=== PATIENT | female | born 1965 | race Caucasian/White ===

== ENCOUNTER 2018-03-12 21:21 | Emergency (ER) | payer BC, MEDICARE ==
[~2018-03-12] VITALS: Ht 162.6 cm; Wt 83.0 kg
[~2018-03-12 21:21] MED LIST: BENTYL10 MG PO; COLACE100 MG PO; GEODON40 MG PO; TYLENOL WITH C1 EACH PO; ZOLOFT100 MG PO
--- OUTSIDE RECORDS SUMMARY | 2018-03-12 21:24 | XMS REPORT | Clinical Summary ---
Author Author [facility] Organization [facility] Address Unknown Phone Unavailable Care Team Providers Care Resident Director Name Role Phone Sue Alba Maya BARNES PCP Allergies Comments Active Allergy Reactions Severity Noted Date Cephalexin Rash Low 10/04/2016 "interacts with other medication" Tramadol Rash Low 04/23/2017 Medications End Date Status Medication Sig Dispensed Refills Start Date Active ziprasidone (GEODON) 40 Take 40 mg by 0 MG capsule mouth every 7 evening. Active sertraline (ZOLOFT) 100 Take 100 mg 0 MG tablet by mouth 7 every morning. Active LORAZepam (ATIVAN) 1 MG 1 mg every 6 0 tablet (six) hours 7 as needed for anxiety. 03/28/2017 Discontinued dextromethorphan-guaifene Take 1 tablet 28 each 0 sin (MUCINEX DM) 30-600 by mouth 2 7 mg tablet extended (two) times a release 12 hr day. For cough 03/28/2017 Discontinued fluticasone (FLONASE) 50 USE 2 SPRAYS 16 mL 0 mcg/actuation nasal spray IN EACH 7 NOSTRIL DAILY 03/28/2017 Discontinued meloxicam (MOBIC) 15 mg TAKE 1 TABLET 30 tablet 0 tablet BY MOUTH 7 DAILY WITH FOOD NEEDED FOR PAIN FOR UP TO 30 DAYS 04/23/2017 Discontinued PROAIR HFA 90 Inhale 1 0 mcg/actuation inhaler puff. 8 07/27/2017 Discontinued dicyclomine (BENTYL) 20 TK 1 T PO QID 0 mg tablet prn 7 04/23/2017 Discontinued traMADol (ULTRAM) 50 mg TK 1 T PO BID 0 tablet PRN P 8 04/23/2017 Discontinued benzonatate (TESSALON) Take 1 20 capsule 0 200 MG capsule (200 8 capsuleIndications: Viral mg total) by URI mouth 3 (three) times a day as needed for cough. 04/23/2017 Discontinued fluticasone (FLONASE) 50 2 sprays (100 16 mL 3 mcg/actuation nasal mcg total) by 8 sprayIndications: Each Nare Allergic rhinitis, route daily. unspecified chronicity, unspecified seasonality, unspecified trigger 06/04/2017 Discontinued cetirizine (ZyrTEC) 10 MG Take 1 tablet 30 tablet 3 tabletIndications: (10 mg total) 8 Allergic rhinitis, by mouth unspecified chronicity, daily. unspecified seasonality, unspecified trigger 04/28/2017 azithromycin (ZITHROMAX Take 2 6 tablet 0 Z-YANNI) 250 MG tablet tablets the 8 first day, then 1 tablet daily for 4 days. 04/28/2017 benzonatate (TESSALON) Take 1 15 capsule 0 100 MG capsule capsule (100 8 mg total) by mouth every 8 (eight) hours for 5 days. 04/26/2017 ondansetron (ZOFRAN) 4 MG Take 1 tablet 10 tablet 0 tablet (4 mg total) 8 by mouth every 12 (twelve) hours as needed for nausea or vomiting for up to 3 days. 07/09/2017 Discontinued acetaminophen-codeine TK 1 T PO Q 0 (TYLENOL WITH CODEINE #3) 6 H PRN P 8 300-30 mg per tablet 06/04/2017 Discontinued cyclobenzaprine 0 (FLEXERIL) 10 mg tablet 8 06/04/2017 Discontinued methylPREDNISolone TK UTD 0 (MEDROL DOSEPAK) 4 mg 8 tablet 06/04/2017 Discontinued meloxicam (MOBIC) 15 mg Take 1 tablet 30 tablet 0 tabletIndications: (15 mg total) 8 Chronic left-sided low by mouth back pain with left-sided daily. sciatica 06/04/2017 Discontinued fluticasone (FLONASE) 50 2 sprays (100 15.8 mL 0 mcg/actuation nasal mcg total) by 8 sprayIndications: Acute Each Nare seasonal allergic route daily. rhinitis due to pollen 06/04/2017 Discontinued chlorpheniramine Take 1 tablet 40 tablet 0 (CHLOR-TRIMETON) 4 mg (4 mg total) 8 tabletIndications: Acute by mouth seasonal allergic every 6 (six) rhinitis due to pollen hours as needed for allergies or rhinitis for up to 30 days. 06/04/2017 Discontinued olopatadine (PATANOL) 0.1 Administer 1 5 mL 12 % ophthalmic drop to both 8 solutionIndications: eyes 2 (two) Acute seasonal allergic times a day. rhinitis due to pollen 06/01/2017 magnesium citrate Take 1 Bottle 296 mL 0 solution (296 mL 8 total) by mouth once for 1 dose. 06/14/2017 Discontinued ciprofloxacin (CIPRO) 500 Take 1 tablet 14 tablet 0 MG tablet (500 mg 8 total) by mouth 2 (two) times a day for 7 days. 06/14/2017 Discontinued metroNIDAZOLE (FLAGYL) Take 1 tablet 21 tablet 0 500 MG tablet (500 mg 8 total) by mouth 3 (three) times a day for 7 days. 06/19/2017 hydrocortisone acetate 1 Apply 1 30 g 1 % ointment application 8 topically 3 (three) times a day as needed (pain) for up to 10 days. 07/09/2017 Discontinued naproxen (NAPROSYN) 500 Take 1 tablet 20 tablet 0 201 MG tablet (500 mg 8 total) by mouth 2 (two) times a day with meals for 30 days. 01/10/2018 Discontinued fluticasone (FLONASE) 50 2 sprays (100 15.8 mL 0 mcg/actuation nasal mcg total) by 8 sprayIndications: Acute Each Nare allergic rhinitis, route daily. unspecified seasonality, unspecified trigger 06/21/2017 doxycycline (VIBRAMYCIN) Take 1 14 capsule 0 100 MG capsule (100 8 capsuleIndications: Acute mg total) by non-recurrent sinusitis, mouth 2 (two) unspecified location times a day for 7 days. 07/09/2017 Discontinued meloxicam (MOBIC) 15 mg TAKE 1 30 tablet 0 tabletIndications: TABLET(15 MG) 8 Chronic left-sided low BY MOUTH back pain with left-sided DAILY sciatica 07/05/2017 ciprofloxacin (CIPRO) 500 Take 1 tablet 20 tablet 0 MG tablet (500 mg 8 total) by mouth 2 (two) times a day for 10 days. 07/06/2017 Discontinued famotidine (PEPCID) 20 MG Take 1 tablet 20 tablet 0 tablet (20 mg total) 8 by mouth 2 (two) times a day for 10 days. 07/09/2017 Discontinued albuterol (PROAIR Inhale 1 puff 1 Inhaler 0 HFA,PROVENTIL every 6 (six) 8 HFA,VENTOLIN HFA) 90 hours as mcg/actuation inhaler needed for wheezing or shortness of breath for up to 30 days. 07/09/2017 Discontinued benzonatate (TESSALON) Take 1 21 capsule 0 100 MG capsule capsule (100 8 mg total) by mouth 3 (three) times a day as needed for cough for up to 21 doses. 07/09/2017 Discontinued famotidine (PEPCID) 20 MG Take 1 tablet 20 tablet 0 tablet (20 mg total) 8 by mouth 2 (two) times a day for 10 days. 07/10/2017 Discontinued azithromycin (ZITHROMAX Take 2 6 tablet 0 Z-YANNI) 250 MG tablet tablets the 8 first day, then 1 tablet daily for 4 days. 07/17/2017 ciprofloxacin (CIPRO) 500 Take 1 tablet 14 tablet 0 MG tablet (500 mg 8 total) by mouth 2 (two) times a day for 7 days. 07/17/2017 metroNIDAZOLE (FLAGYL) Take 1 tablet 21 tablet 0 500 MG tablet (500 mg 8 total) by mouth 3 (three) times a day for 7 days. 08/23/2017 butalbital-acetaminophen- Take 1 tablet 20 tablet 0 caff (ESGIC) 50-325-40 mg by mouth 8 per tablet every 4 (four) hours as needed for headaches for up to 30 days. 11/24/2017 Discontinued dicyclomine (BENTYL) 20 Take 1 tablet 10 tablet 0 mg tablet (20 mg total) 8 by mouth every 6 (six) hours as needed (bloating, GI cramping) for up to 10 doses. 11/23/2017 Discontinued ondansetron ODT (ZOFRAN Take 1 tablet 10 tablet 0 ODT) 4 MG disintegrating (4 mg total) 8 tablet by mouth every 8 (eight) hours as needed for nausea for up to 10 doses. 10/13/2017 Discontinued metroNIDAZOLE (FLAGYL) Take 250 mg 0 250 MG tablet by mouth 3 (three) times a day. 10/20/2017 sulfamethoxazole-trimetho Take 1 tablet 14 tablet 0 prim (BACTRIM DS) 800-160 by mouth 2 8 mg per tabletIndications: (two) times a Bronchitis day for 7 days. 10/23/2017 benzonatate (TESSALON) Take 1 30 capsule 0 200 MG capsule (200 8 capsuleIndications: Cough mg total) by mouth 3 (three) times a day as needed for cough for up to 10 days. 10/25/2017 naproxen (NAPROSYN) 500 Take 1 tablet 20 tablet 0 MG tablet (500 mg 8 total) by mouth 2 (two) times a day as needed (pain) for up to 10 days. 10/25/2017 docusate sodium (COLACE) Take 1 20 capsule 0 100 MG capsule capsule (100 8 mg total) by mouth every 12 (twelve) hours for 10 days. 10/17/2017 magnesium citrate Take 1 Bottle 592 mL 0 solution (296 mL 8 total) by mouth nightly for 2 doses. 10/17/2017 polyethylene glycol Take 4,000 mL 4000 mL 0 (GOLYTELY) 236-22.74-6.74 by mouth once 8 -5.86 gram solution for 1 dose. 11/23/2017 Discontinued polyethylene glycol Take 17 g by 30 packet 0 (MIRALAX) 17 gram packet mouth daily 8 for 30 days. 11/23/2017 Discontinued ondansetron ODT Take 1 tablet 15 tablet 1 (ZOFRAN-ODT) 4 MG (4 mg total) 8 disintegrating tablet by mouth every 8 (eight) hours as needed for nausea or vomiting for up to 5 days. 11/23/2017 Discontinued ciprofloxacin (CIPRO) 500 TK 1 T PO BID 0 MG tablet FOR 14 DAYS 8 11/24/2017 Discontinued cyclobenzaprine TK 1 T PO TID 0 (FLEXERIL) 10 mg tablet FOR 10 DAYS 8 11/23/2017 Discontinued methocarbamol (ROBAXIN) TK 2 TS PO 0 500 MG tablet QID PRF 8 MUSCLE SPASMS OR PAIN 11/23/2017 Discontinued metroNIDAZOLE (FLAGYL) TK 1 T PO BID 0 500 MG tablet FOR 14 DAYS 8 11/24/2017 Discontinued traMADol (ULTRAM) 50 mg TK 1 T PO BID 0 tablet PRN 8 11/23/2017 Discontinued dicyclomine (BENTYL) 10 Take 10 mg by 0 MG capsule mouth. 8 11/26/2017 Discontinued metroNIDAZOLE (FLAGYL) Take 1 tablet 15 tablet 0 500 MG tablet (500 mg 8 total) by mouth 3 (three) times a day for 5 days. 11/28/2017 ondansetron ODT Take 1 tablet 15 tablet 1 (ZOFRAN-ODT) 4 MG (4 mg total) 8 disintegrating tablet by mouth every 8 (eight) hours as needed for nausea or vomiting for up to 5 days. 12/23/2017 famotidine (PEPCID) 20 MG Take 1 tablet 60 tablet 0 tablet (20 mg total) 8 by mouth 2 (two) times a day for 30 days. 11/26/2017 Discontinued ciprofloxacin HCl (CIPRO) Take 1 tablet 10 tablet 0 500 MG tablet (500 mg 8 total) by mouth 2 (two) times a day for 5 days. 12/10/2017 vancomycin (VANCOCIN) 50 Take 5 mL 280 mL 0 mg/ml suspension oral (250 mg 8 suspension total) by mouth 4 (four) times a day for 14 days. 12/21/2017 acetaminophen-codeine Take 1-2 15 tablet 0 (TYLENOL WITH CODEINE #3) tablets by 8 300-30 mg per tablet mouth every 6 (six) hours as needed for moderate pain for up to 10 days. 02/03/2018 Discontinued dicyclomine (BENTYL) 10 Take 10 mg by 0 MG capsule mouth. 8 02/01/2018 metroNIDAZOLE (FLAGYL) Take 1 tablet 30 tablet 0 500 MG tablet (500 mg 8 total) by mouth 3 (three) times a day for 10 days. 01/25/2018 acetaminophen-codeine Take 1-2 10 tablet 0 (TYLENOL WITH CODEINE #3) tablets by 8 300-30 mg per tablet mouth every 6 (six) hours as needed for moderate pain for up to 3 days. 03/05/2018 meloxicam (MOBIC) 15 mg Take 1 tablet 20 tablet 0 tablet (15 mg total) 8 by mouth daily as needed for mild pain or moderate pain for up to 30 days. 02/15/2018 Discontinued dicyclomine (BENTYL) 20 Take 1 tablet 30 tablet 0 mg tablet (20 mg total) 8 by mouth every 8 (eight) hours as needed (abdominal cramping) for up to 30 days. 02/06/2018 acetaminophen-codeine Take 1 tablet 10 tablet 0 (TYLENOL WITH CODEINE #4) by mouth 8 300-60 mg per tablet every 8 (eight) hours as needed for moderate pain for up to 3 days. 03/05/2018 ondansetron ODT (ZOFRAN Take 1 tablet 10 tablet 0 ODT) 4 MG disintegrating (4 mg total) 8 tablet by mouth every 8 (eight) hours as needed for nausea or vomiting for up to 30 days. 02/25/2018 dicyclomine (BENTYL) 20 Take 2 20 tablet 0 mg tablet tablets (40 9 mg total) by mouth every 6 (six) hours as needed (Abdominal Pain) for up to 10 days. Active Problems Problem Noted Date Acute colitis 11/24/2017 Abdominal pain, lower 11/22/2017 Right lower quadrant abdominal pain 11/19/2017 Abdominal pain 11/17/2017 Generalized abdominal pain 07/08/2017 Diverticulosis of large intestine 06/04/2017 Encounters Care Team Description Date Type Specialty Leon Kain Floyd MD Acute bilateral lower abdominal pain (Primary Dx); Drug-seeking behavior; Narcotic abuse (HCC) 02/15/2018 Emergency Emergency Medicine Damaso Ferrara DO Abdominal pain, unspecified abdominal location (Primary Dx) 02/06/2018 Emergency Emergency Medicine Ron Stout MD Lower abdominal pain (Primary Dx); Diarrhea, unspecified type; Dehydration 02/03/2018 Emergency Emergency Medicine Gus Grimaldo MD Diarrhea, unspecified type (Primary Dx); Abdominal pain, unspecified abdominal location 01/22/2018 Emergency Emergency Medicine 01/22/2018 Wilfred Rubio MD 01/10/2018 Emergency Emergency Medicine Sultana Pyle MD Diarrhea, unspecified type (Primary Dx); Lower abdominal pain 12/10/2017 Emergency Emergency Medicine - 12/11/2017 Gus Grimaldo MD Abdominal pain, unspecified abdominal location (Primary Dx) 11/30/2017 Emergency Emergency Medicine Wilfred Cordoba MD Generalized abdominal pain (Primary Dx) 11/28/2017 Emergency Emergency Medicine Damaso Ferrara DO Ghosh, Sidharth, MD Pham, Hoang N, MD Acute colitis (Primary Dx) 11/24/2017 [facility] General Internal Medicine - Encounter 11/26/2017 Gus Grimaldo MD Pham, Hoang N, MD Abdominal pain, lower (Primary Dx); Colitis 11/22/2017 Emergency General Internal Medicine - 11/23/2017 Maxwell Lim MD 11/20/2017 [facility] General Internal Medicine Claus Traylor MD Islam, Nadim Bin, MD Pham, Hoang N, MD Right lower quadrant abdominal pain (Primary Dx); Enterocolitis 11/19/2017 Emergency General Surgery - 11/20/2017 Gus Grimaldo MD Ghosh, Sidharth, MD Abdominal pain, unspecified abdominal location (Primary Dx); Ileus (HCC) 11/17/2017 Emergency General Surgery 11/06/2017 Emergency Emergency Medicine Kain Cordova MD Back strain, initial encounter (Primary Dx); Acute back pain with sciatica, unspecified laterality 10/26/2017 Emergency Emergency Medicine Brandon Galan MD RLQ abdominal pain (Primary Dx) 10/17/2017 Emergency Emergency Medicine Brandon Galan MD RLQ abdominal pain (Primary Dx) 10/15/2017 Emergency Emergency Medicine Parth Rogers MD Bronchitis (Primary Dx); Cough; Upper respiratory tract infection, unspecified type 10/13/2017 Office Visit Internal Medicine Parth Rogers MD Chronic abdominal pain (Primary Dx) 10/02/2017 Telephone Family Medicine Gus Grimaldo MD Chest pain, unspecified type (Primary Dx) 10/01/2017 Emergency Emergency Medicine Huey Albright MD Abdominal pain, unspecified abdominal location (Primary Dx) 09/27/2017 Emergency Emergency Medicine - 09/28/2017 Damaso Ferrara DO Abdominal pain, unspecified abdominal location (Primary Dx) 09/09/2017 Emergency Emergency Medicine Violet Reese MD Lower abdominal pain (Primary Dx) 09/08/2017 Emergency Emergency Medicine Violet Reese MD 09/06/2017 Emergency Emergency Medicine Sultana Pyle MD Left lower quadrant pain (Primary Dx); Diarrhea, unspecified type 08/07/2017 Emergency Emergency Medicine Suraj Hidalgo NP-C Vander Meulen, Michael Scott, MD Left lower quadrant pain (Primary Dx); Periumbilical abdominal pain; Non-intractable vomiting with nausea, unspecified vomiting type; Diarrhea, unspecified type 07/27/2017 Emergency Emergency Medicine Suraj Hidalgo NP-C Rosendo Katz MD Lower abdominal pain (Primary Dx); Non-intractable vomiting with nausea, unspecified vomiting type; Diarrhea, unspecified type 07/26/2017 Emergency Emergency Medicine RichardNe Burns MA Diverticulosis of intestine without bleeding, unspecified intestinal tract location (Primary Dx) 07/26/2017 Orders Only Family Medicine Dejah Baker MD 07/26/2017 Telephone Family Medicine Kain Cordova MD Acute nonintractable headache, unspecified headache type (Primary Dx) 07/24/2017 Emergency Emergency Medicine Michele Rahman MD Ghosh, Sidharth, MD Generalized abdominal pain (Primary Dx) 07/08/2017 Emergency General Surgery - 07/10/2017 Jami, Juani NadegeJESSICA sarkar Fahad Mohammad, DO Bronchitis (Primary Dx); Cough; Chest pain, non-cardiac; Elevated lipase 07/06/2017 Emergency Emergency Medicine Juani Farrell PA-C Sidlak, Alexander Michael, MD Periumbilical abdominal pain (Primary Dx); Chest pain, unspecified type; Chronic left-sided low back pain with left-sided sciatica 06/27/2017 Emergency Emergency Medicine Jose Sweeney MD 06/27/2017 Emergency Emergency Medicine Huey Albright MD Chest pain, unspecified type (Primary Dx); Lower abdominal pain; Acute UTI; Chest cold 06/25/2017 Emergency Emergency Medicine Dejah Baker MD Chronic left-sided low back pain with left-sided sciatica 06/16/2017 Refill Family Medicine Parth Rogers MD Acute non-recurrent sinusitis, unspecified location (Primary Dx); BMI 32.0-32.9,adult; Acute allergic rhinitis, unspecified seasonality, unspecified trigger; Aneurysm 06/14/2017 Office Visit Internal Medicine Parth Rogers MD 06/14/2017 Telephone Internal Medicine Sultana Pyle MD Lower abdominal pain (Primary Dx) 06/13/2017 Emergency Emergency Medicine Genaro Mathis MD Abdominal pain, unspecified abdominal location (Primary Dx); Rectal pain 06/09/2017 Emergency Emergency Medicine Suraj Hidalgo NP-C Kohlnhofer, Matthew, MD Diverticulitis of large intestine without perforation or abscess without bleeding (Primary Dx); Intractable abdominal pain; Nausea 06/04/2017 Emergency General Surgery - 06/06/2017 Rosendo Katz MD 06/01/2017 Emergency Emergency Medicine Brandon Galan MD Generalized abdominal pain (Primary Dx); Constipation, unspecified constipation type 05/31/2017 Emergency Emergency Medicine - 06/01/2017 Deajh Baker MD Chronic left-sided low back pain with left-sided sciatica (Primary Dx); Acute seasonal allergic rhinitis due to pollen; Chest pain, atypical; Brain aneurysm 05/18/2017 Office Visit Family Medicine Dejah Baker MD 05/18/2017 Telephone Family Medicine Patricia Lin MD 05/04/2017 Telephone Internal Medicine Damaso Ferrara DO Milling, Truman John, MD Bronchitis (Primary Dx) 04/23/2017 Emergency Emergency Medicine [facility]Patricia Delgado MD Viral URI (Primary Dx); Allergic rhinitis, unspecified chronicity, unspecified seasonality, unspecified trigger; Urinary frequency 03/28/2017 Office Visit Internal Medicine after 03/11/2017 Immunizations Name Dates Previously Given Next Due FLUCELVAX QUAD PF (0.5mL 11/17/2017 syringe) Pneumococcal Conjugate 06/06/2017 (Deferred: ) 13-[facility]ent Family History Medical History Relation Name Comments No Known Problems Father Heart attack Maternal Grandfather Hyperlipidemia Maternal Grandfather No Known Problems Mother Relation Name Status Comments Father Maternal Grandfather Mother Social History Date Tobacco Use Types Packs/Day Years Used Started: 03/15/1999 Current Every Day Smoker Cigarettes 1 Smokeless Tobacco: Never Used Tobacco Cessation: Ready to Quit: Yes; Counseling Given: Yes Comments: 1ppd x 20 years Alcohol Use Drinks/Week oz/Week Comments No Sex Assigned at Date Recorded Not on file Industry Job Start Date Occupation Not on file Not on file Not on file Travel End Travel History Travel Start No recent travel history available. Last Filed Vital Signs Time Taken Vital Sign Reading 02/15/2018 6:30 PM [employer] Blood Pressure 141/67 02/15/2018 6:30 PM [employer] Pulse 90 02/15/2018 2:42 PM [employer] Temperature 36.4 C (97.6 F) 02/15/2018 6:30 PM [employer] Respiratory Rate 20 02/15/2018 6:30 PM [employer] Oxygen Saturation 100% - Inhaled Oxygen - Concentration 02/15/2018 2:42 PM [employer] Weight 86.2 kg (190 lb) 02/15/2018 2:42 PM [employer] Height 162.6 cm (5' 4") 02/15/2018 2:42 PM [employer] Body Mass Index 32.61 Plan of Treatment Health Maintenance Due Date Last Done Comments CERVICAL CANCER SCREENING 04/17/1988 BREAST CANCER SCREENING 04/17/2017 COLON CANCER SCREENING 04/17/2017 SHINGLES VACCINES (1 of 04/17/2017 2) INFLUENZA VACCINE Completed 11/17/2017 Procedures Comments Procedure Name Priority Date/Time Associated Diagnosis CT ABDOMEN PELVIS W STAT 02/15/2018 CONTRAST 6:51 PM [employer] HCG QUALITATIVE, URINE STAT 02/15/2018 SCREEN 4:40 PM [employer] URINALYSIS SCREEN AND STAT 02/15/2018 MICROSCOPY, WITH REFLEX 4:40 PM [employer] TO CULTURE GRAM STAIN STAT 02/15/2018 4:40 PM [employer] URINE CULTURE STAT 02/15/2018 4:40 PM [employer] ESTIMATED GFR STAT 02/15/2018 4:30 PM [employer] COMPREHENSIVE METABOLIC STAT 02/15/2018 PANEL 4:30 PM [employer] HC COMPLETE BLD COUNT STAT 02/15/2018 W/AUTO DIFF 4:30 PM [employer] ESTIMATED GFR STAT 02/06/2018 8:52 PM [employer] BASIC METABOLIC PANEL STAT 02/06/2018 8:52 PM [employer] HC COMPLETE BLD COUNT STAT 02/06/2018 W/AUTO DIFF 8:52 PM [employer] ECG 12-LEAD STAT 02/03/2018 10:09 PM [employer] XR CHEST 1 VW PORTABLE STAT 02/03/2018 9:[address] [address] ABDOMEN PELVIS W STAT 02/03/2018 CONTRAST 9:50 PM [employer] CREATINE KINASE, TOTAL STAT 02/03/2018 (CPK) 8:45 PM [employer] TROPONIN STAT 02/03/2018 8:45 PM [employer] B NATRIURETIC PEPTIDE STAT 02/03/2018 8:45 PM [employer] ESTIMATED GFR STAT 02/03/2018 8:45 PM [employer] HCG QUALITATIVE, URINE STAT 02/03/2018 SCREEN 8:45 PM [employer] PARTIAL THROMBOPLASTIN STAT 02/03/2018 TIME (PTT) 8:45 PM [employer] PROTHROMBIN TIME WITH INR STAT 02/03/2018 8:45 PM [employer] URINALYSIS SCREEN AND STAT 02/03/2018 MICROSCOPY, WITH REFLEX 8:45 PM [employer] TO CULTURE LIPASE LEVEL STAT 02/03/2018 8:45 PM [employer] COMPREHENSIVE METABOLIC STAT 02/03/2018 PANEL 8:45 PM [employer] HC COMPLETE BLD COUNT STAT 02/03/2018 W/AUTO DIFF 8:45 PM [employer] RESPIRATORY PATHOGEN Routine 02/03/2018 PANEL 8:45 PM [employer] INFLUENZA ANTIGEN Routine 02/03/2018 8:45 PM [employer] BLOOD CULTURE, AEROBIC & Routine 02/03/2018 ANAEROBIC 8:45 PM [employer] BLOOD CULTURE, AEROBIC & Routine 02/03/2018 ANAEROBIC 8:30 PM [employer] ECG ED PRELIMINARY Routine 02/03/2018 INTERPRETATION 8:[address] [address] ABDOMEN PELVIS W STAT 01/22/2018 CONTRAST 6:29 PM [employer] URINALYSIS SCREEN AND STAT 01/22/2018 MICROSCOPY, WITH REFLEX 6:07 PM [employer] TO CULTURE URINE CULTURE STAT 01/22/2018 6:07 PM [employer] HCG QUALITATIVE, SERUM STAT 01/22/2018 SCREEN 5:30 PM [employer] ESTIMATED GFR STAT 01/22/2018 5:30 PM [employer] LIPASE LEVEL STAT 01/22/2018 5:30 PM [employer] COMPREHENSIVE METABOLIC STAT 01/22/2018 PANEL 5:30 PM [employer] HC COMPLETE BLD COUNT STAT 01/22/2018 W/AUTO DIFF 5:30 PM [employer] URINALYSIS SCREEN AND Routine 12/11/2017 MICROSCOPY, WITH REFLEX 12:10 AM CDT TO CULTURE GRAM STAIN Routine 12/11/2017 12:10 AM CDT URINE CULTURE Routine 12/11/2017 12:10 AM CDT ESTIMATED GFR STAT 12/10/2017 11:10 PM CDT LACTIC ACID LEVEL, SEPSIS STAT 12/10/2017 - NOW AND REPEAT 2X EVERY 11:10 PM CDT 3 HOURS LIPASE LEVEL STAT 12/10/2017 11:10 PM CDT AMYLASE LEVEL STAT 12/10/2017 11:10 PM CDT COMPREHENSIVE METABOLIC STAT 12/10/2017 PANEL 11:10 PM CDT HC COMPLETE BLD COUNT STAT 12/10/2017 W/AUTO DIFF 11:10 PM CDT ESTIMATED GFR STAT 11/30/2017 6:35 PM CDT URINALYSIS SCREEN AND STAT 11/30/2017 MICROSCOPY, WITH REFLEX 6:35 PM CDT TO CULTURE LIPASE LEVEL STAT 11/30/2017 6:35 PM CDT COMPREHENSIVE METABOLIC STAT 11/30/2017 PANEL 6:35 PM CDT HC COMPLETE BLD COUNT STAT 11/30/2017 W/AUTO DIFF 6:35 PM CDT GRAM STAIN STAT 11/30/2017 6:35 PM CDT URINE CULTURE STAT 11/30/2017 6:35 PM CDT XR ABDOMEN ACUTE INC STAT 11/28/2017 CHEST 7:57 PM CDT ESTIMATED GFR STAT 11/24/2017 9:16 PM CDT BASIC METABOLIC PANEL STAT 11/24/2017 9:16 PM CDT HC COMPLETE BLD COUNT STAT 11/24/2017 W/AUTO DIFF 9:16 PM CDT GASTROINTESTINAL PANEL Routine 11/23/2017 11:26 AM CDT ESTIMATED GFR Routine 11/23/2017 5:29 AM CDT COMPREHENSIVE METABOLIC Routine 11/23/2017 PANEL 5:29 AM CDT HC COMPLETE BLD COUNT Routine 11/23/2017 W/AUTO DIFF 5:29 AM CDT MAGNESIUM LEVEL Routine 11/22/2017 8:40 AM CDT THYROID STIMULATING Routine 11/22/2017 HORMONE 8:40 AM CDT ESTIMATED GFR STAT 11/22/2017 8:40 AM CDT URINALYSIS SCREEN AND STAT 11/22/2017 MICROSCOPY, WITH REFLEX 8:40 AM CDT TO CULTURE LIPASE LEVEL STAT 11/22/2017 8:40 AM CDT COMPREHENSIVE METABOLIC STAT 11/22/2017 PANEL 8:40 AM CDT HC COMPLETE BLD COUNT STAT 11/22/2017 W/AUTO DIFF 8:40 AM CDT GRAM STAIN STAT 11/22/2017 8:40 AM CDT URINE CULTURE STAT 11/22/2017 8:40 AM CDT ESTIMATED GFR Routine 11/20/2017 5:25 AM CDT COMPREHENSIVE METABOLIC Routine 11/20/2017 PANEL 5:25 AM CDT HC COMPLETE BLD COUNT Routine 11/20/2017 W/AUTO DIFF 5:[address] ABDOMEN PELVIS W STAT 11/19/2017 CONTRAST 10:34 PM CDT URINALYSIS SCREEN AND STAT 11/19/2017 MICROSCOPY, WITH REFLEX 8:46 PM CDT TO CULTURE GRAM STAIN STAT 11/19/2017 8:46 PM CDT URINE CULTURE STAT 11/19/2017 8:46 PM CDT ESTIMATED GFR STAT 11/19/2017 8:32 PM CDT LIPASE LEVEL STAT 11/19/2017 8:32 PM CDT COMPREHENSIVE METABOLIC STAT 11/19/2017 PANEL 8:32 PM CDT HC COMPLETE BLD COUNT STAT 11/19/2017 W/AUTO DIFF 8:32 PM CDT ESTIMATED GFR Routine 11/17/2017 4:55 AM CDT COMPREHENSIVE METABOLIC Routine 11/17/2017 PANEL 4:55 AM CDT HC COMPLETE BLD COUNT Routine 11/17/2017 W/AUTO DIFF 4:[address] ABDOMEN PELVIS W STAT 11/17/2017 CONTRAST 2:13 AM CDT LIPASE LEVEL Routine 11/17/2017 1:57 AM CDT ESTIMATED GFR Routine 11/17/2017 1:57 AM CDT COMPREHENSIVE METABOLIC Routine 11/17/2017 PANEL 1:57 AM CDT COMPREHENSIVE METABOLIC STAT 11/17/2017 PANEL 12:45 AM CDT LIPASE LEVEL STAT 11/17/2017 12:45 AM CDT SMEAR REVIEW STAT 11/17/2017 12:45 AM CDT ESTIMATED GFR STAT 11/17/2017 12:45 AM CDT HCG QUALITATIVE, SERUM STAT 11/17/2017 SCREEN 12:45 AM CDT URINALYSIS SCREEN AND STAT 11/17/2017 MICROSCOPY, WITH REFLEX 12:45 AM CDT TO CULTURE LIPASE LEVEL STAT 11/17/2017 12:45 AM CDT COMPREHENSIVE METABOLIC STAT 11/17/2017 PANEL 12:45 AM CDT HC COMPLETE BLD COUNT STAT 11/17/2017 W/AUTO DIFF 12:45 AM CDT INFLUENZA ANTIGEN Routine 11/17/2017 12:45 AM CDT ECG 12-LEAD Routine 11/17/2017 12:14 AM CDT ECG ED PRELIMINARY Routine 11/17/2017 INTERPRETATION 12:13 AM CDT XR ABDOMEN 1 VW STAT 10/17/2017 1:[address] ABDOMEN PELVIS W STAT 10/15/2017 CONTRAST 10:42 PM CDT URINALYSIS SCREEN AND Routine 10/15/2017 MICROSCOPY, WITH REFLEX 9:27 PM CDT TO CULTURE ZZESTIMATED GFR STAT 10/15/2017 12:27 PM CDT LIPASE LEVEL STAT 10/15/2017 12:27 PM CDT HEPATIC FUNCTION PANEL STAT 10/15/2017 12:27 PM CDT BASIC METABOLIC PANEL STAT 10/15/2017 12:27 PM CDT PARTIAL THROMBOPLASTIN STAT 10/15/2017 TIME (PTT) 12:27 PM CDT PROTHROMBIN TIME WITH INR STAT 10/15/2017 12:27 PM CDT HC COMPLETE BLD COUNT STAT 10/15/2017 W/AUTO DIFF 12:27 PM CDT XR CHEST 2 VW STAT 10/01/2017 11:21 PM CDT ZZESTIMATED GFR STAT 10/01/2017 10:22 PM CDT TROPONIN Timed 10/01/2017 10:22 PM CDT COMPREHENSIVE METABOLIC STAT 10/01/2017 PANEL 10:22 PM CDT HC COMPLETE BLD COUNT STAT 10/01/2017 W/AUTO DIFF 10:22 PM CDT ECG ED PRELIMINARY Routine 10/01/2017 INTERPRETATION 10:15 PM CDT ECG 12-LEAD STAT 10/01/2017 10:11 PM CDT HCG QUALITATIVE, SERUM STAT 09/27/2017 SCREEN 11:25 PM CDT TROPONIN STAT 09/27/2017 11:25 PM CDT ZZESTIMATED GFR STAT 09/27/2017 11:25 PM CDT URINALYSIS SCREEN AND Routine 09/27/2017 MICROSCOPY, WITH REFLEX 11:25 PM CDT TO CULTURE LIPASE LEVEL STAT 09/27/2017 11:25 PM CDT COMPREHENSIVE METABOLIC STAT 09/27/2017 PANEL 11:25 PM CDT HC COMPLETE BLD COUNT STAT 09/27/2017 W/AUTO DIFF 11:25 PM CDT TROPONIN Timed 09/27/2017 11:25 PM CDT GRAM STAIN Routine 09/27/2017 11:25 PM CDT URINE CULTURE Routine 09/27/2017 11:25 PM CDT ECG 12-LEAD Routine 09/27/2017 11:10 PM CDT ECG ED PRELIMINARY Routine 09/27/2017 INTERPRETATION 11:08 PM CDT ZZESTIMATED GFR STAT 09/09/2017 2:58 PM CDT LIPASE LEVEL STAT 09/09/2017 2:58 PM CDT COMPREHENSIVE METABOLIC STAT 09/09/2017 PANEL 2:58 PM CDT HCG QUALITATIVE, URINE STAT 09/09/2017 SCREEN 2:58 PM CDT URINALYSIS SCREEN AND STAT 09/09/2017 MICROSCOPY, WITH REFLEX 2:58 PM CDT TO CULTURE HC COMPLETE BLD COUNT STAT 09/09/2017 W/AUTO DIFF 2:58 PM CDT GRAM STAIN STAT 09/09/2017 2:58 PM CDT URINE CULTURE STAT 09/09/2017 2:[address] ABDOMEN PELVIS W STAT 08/07/2017 CONTRAST 4:58 AM CDT ZZESTIMATED GFR Routine 08/07/2017 3:25 AM CDT LIPASE LEVEL Routine 08/07/2017 3:25 AM CDT AMYLASE LEVEL Routine 08/07/2017 3:25 AM CDT COMPREHENSIVE METABOLIC Routine 08/07/2017 PANEL 3:25 AM CDT HCG QUALITATIVE, URINE Routine 08/07/2017 SCREEN 2:50 AM CDT URINALYSIS SCREEN AND STAT 08/07/2017 MICROSCOPY, WITH REFLEX 2:50 AM CDT TO CULTURE LACTIC ACID LEVEL STAT 08/07/2017 2:50 AM CDT HC COMPLETE BLD COUNT STAT 08/07/2017 W/AUTO DIFF 2:50 AM CDT GRAM STAIN STAT 08/07/2017 2:50 AM CDT URINE CULTURE STAT 08/07/2017 2:[address] ABDOMEN PELVIS W STAT 07/27/2017 CONTRAST 11:05 PM CDT ZZESTIMATED GFR STAT 07/27/2017 9:20 PM CDT PARTIAL THROMBOPLASTIN STAT 07/27/2017 TIME (PTT) 9:20 PM CDT PROTHROMBIN TIME WITH INR STAT 07/27/2017 9:20 PM CDT LIPASE LEVEL STAT 07/27/2017 9:20 PM CDT COMPREHENSIVE METABOLIC STAT 07/27/2017 PANEL 9:20 PM CDT HC COMPLETE BLD COUNT STAT 07/27/2017 W/AUTO DIFF 9:20 PM CDT HCG QUALITATIVE, URINE Routine 07/27/2017 SCREEN 6:14 PM CDT URINALYSIS SCREEN AND Routine 07/27/2017 MICROSCOPY, WITH REFLEX 6:14 PM CDT TO CULTURE URINE CULTURE Routine 07/27/2017 6:14 PM CDT ECG ED PRELIMINARY Routine 07/26/2017 INTERPRETATION 11:21 PM CDT ZZESTIMATED GFR STAT 07/26/2017 10:23 PM CDT PARTIAL THROMBOPLASTIN STAT 07/26/2017 TIME (PTT) 10:23 PM CDT PROTHROMBIN TIME WITH INR STAT 07/26/2017 10:23 PM CDT HC COMPLETE BLD COUNT STAT 07/26/2017 W/AUTO DIFF 10:23 PM CDT HCG QUALITATIVE, URINE STAT 07/26/2017 SCREEN 10:23 PM CDT URINALYSIS SCREEN AND STAT 07/26/2017 MICROSCOPY, WITH REFLEX 10:23 PM CDT TO CULTURE LIPASE LEVEL STAT 07/26/2017 10:23 PM CDT COMPREHENSIVE METABOLIC STAT 07/26/2017 PANEL 10:23 PM CDT MRI BRAIN WO CONTRAST STAT 07/24/2017 1:54 AM CDT MRA HEAD WO CONTRAST STAT 07/24/2017 1:[address] HEAD WO CONTRAST STAT 07/24/2017 12:39 AM CDT ZZESTIMATED GFR Routine 07/24/2017 12:20 AM CDT HCG QUALITATIVE, SERUM STAT 07/24/2017 SCREEN 12:20 AM CDT URINALYSIS SCREEN AND Routine 07/24/2017 MICROSCOPY, WITH REFLEX 12:20 AM CDT TO CULTURE COMPREHENSIVE METABOLIC Routine 07/24/2017 PANEL 12:20 AM CDT PROTHROMBIN TIME WITH INR Routine 07/24/2017 12:20 AM CDT HC COMPLETE BLD COUNT Routine 07/24/2017 W/AUTO DIFF 12:20 AM CDT URINE CULTURE Routine 07/24/2017 12:20 AM CDT ZZESTIMATED GFR Routine 07/10/2017 5:00 AM CDT COMPREHENSIVE METABOLIC Routine 07/10/2017 PANEL 5:00 AM CDT ECG 12-LEAD Routine 07/09/2017 2:41 PM CDT ECG 12-LEAD STAT 07/09/2017 1:29 PM CDT HCG QUALITATIVE, SERUM STAT 07/09/2017 SCREEN 11:[address] ABDOMEN PELVIS W STAT 07/08/2017 CONTRAST 5:32 PM CDT URINALYSIS SCREEN AND Routine 07/08/2017 MICROSCOPY, WITH REFLEX 4:50 PM CDT TO CULTURE ZZESTIMATED GFR STAT 07/08/2017 4:30 PM CDT LIPASE LEVEL STAT 07/08/2017 4:30 PM CDT COMPREHENSIVE METABOLIC STAT 07/08/2017 PANEL 4:30 PM CDT HC COMPLETE BLD COUNT STAT 07/08/2017 W/AUTO DIFF 4:30 PM CDT ECG 12-LEAD STAT 07/08/2017 3:56 PM CDT XR CHEST 2 VW STAT 07/06/2017 3:45 PM CDT ZZESTIMATED GFR STAT 07/06/2017 2:04 PM CDT D-DIMER STAT 07/06/2017 2:04 PM CDT B NATRIURETIC PEPTIDE STAT 07/06/2017 2:04 PM CDT TROPONIN STAT 07/06/2017 2:04 PM CDT CREATINE KINASE, TOTAL STAT 07/06/2017 (CPK) 2:04 PM CDT LIPASE LEVEL STAT 07/06/2017 2:04 PM CDT COMPREHENSIVE METABOLIC STAT 07/06/2017 PANEL 2:04 PM CDT URINALYSIS SCREEN AND STAT 07/06/2017 MICROSCOPY, WITH REFLEX 2:04 PM CDT TO CULTURE HC COMPLETE BLD COUNT STAT 07/06/2017 W/AUTO DIFF 2:04 PM CDT URINE CULTURE STAT 07/06/2017 2:04 PM CDT ECG ED PRELIMINARY Routine 07/06/2017 INTERPRETATION 1:34 PM CDT ECG 12-LEAD STAT 07/06/2017 1:16 PM CDT ECG ED PRELIMINARY Routine 06/27/2017 INTERPRETATION 7:[address] ABDOMEN PELVIS W STAT 06/27/2017 CONTRAST 4:56 PM CDT ZZESTIMATED GFR STAT 06/27/2017 3:53 PM CDT B NATRIURETIC PEPTIDE STAT 06/27/2017 3:53 PM CDT TROPONIN STAT 06/27/2017 3:53 PM CDT CREATINE KINASE, TOTAL STAT 06/27/2017 (CPK) 3:53 PM CDT LIPASE LEVEL STAT 06/27/2017 3:53 PM CDT COMPREHENSIVE METABOLIC STAT 06/27/2017 PANEL 3:53 PM CDT URINALYSIS SCREEN AND STAT 06/27/2017 MICROSCOPY, WITH REFLEX 3:53 PM CDT TO CULTURE PARTIAL THROMBOPLASTIN STAT 06/27/2017 TIME (PTT) 3:53 PM CDT PROTHROMBIN TIME WITH INR STAT 06/27/2017 3:53 PM CDT HC COMPLETE BLD COUNT STAT 06/27/2017 W/AUTO DIFF 3:53 PM CDT ECG 12-LEAD STAT 06/27/2017 3:16 PM CDT URINALYSIS SCREEN AND STAT 06/25/2017 MICROSCOPY, WITH REFLEX 6:15 PM CDT TO CULTURE GRAM STAIN STAT 06/25/2017 6:15 PM CDT URINE CULTURE STAT 06/25/2017 6:15 PM CDT XR CHEST 1 VW PORTABLE STAT 06/25/2017 5:50 PM CDT ZZESTIMATED GFR STAT 06/25/2017 5:35 PM CDT LIPASE LEVEL STAT 06/25/2017 5:35 PM CDT B NATRIURETIC PEPTIDE STAT 06/25/2017 5:35 PM CDT TROPONIN STAT 06/25/2017 5:35 PM CDT CREATINE KINASE, TOTAL STAT 06/25/2017 (CPK) 5:35 PM CDT COMPREHENSIVE METABOLIC STAT 06/25/2017 PANEL 5:35 PM CDT PARTIAL THROMBOPLASTIN STAT 06/25/2017 TIME (PTT) 5:35 PM CDT PROTHROMBIN TIME WITH INR STAT 06/25/2017 5:35 PM CDT HC COMPLETE BLD COUNT STAT 06/25/2017 W/AUTO DIFF 5:35 PM CDT ECG 12-LEAD STAT 06/25/2017 5:[address] ABDOMEN PELVIS W STAT 06/13/2017 CONTRAST 4:13 PM CDT ZZESTIMATED GFR STAT 06/13/2017 3:23 PM CDT HCG QUALITATIVE, URINE STAT 06/13/2017 SCREEN 3:23 PM CDT COMPREHENSIVE METABOLIC STAT 06/13/2017 PANEL 3:23 PM CDT URINALYSIS SCREEN AND STAT 06/13/2017 MICROSCOPY, WITH REFLEX 3:23 PM CDT TO CULTURE HC COMPLETE BLD COUNT STAT 06/13/2017 W/AUTO DIFF 3:[address] ABDOMEN PELVIS W STAT 06/09/2017 CONTRAST 12:28 PM CDT HCG QUALITATIVE, URINE STAT 06/09/2017 SCREEN 10:28 AM CDT URINALYSIS SCREEN AND STAT 06/09/2017 MICROSCOPY, WITH REFLEX 10:28 AM CDT TO CULTURE GRAM STAIN STAT 06/09/2017 10:28 AM CDT URINE CULTURE STAT 06/09/2017 10:28 AM CDT ZZESTIMATED GFR STAT 06/09/2017 10:12 AM CDT TYPE AND SCREEN Routine 06/09/2017 10:12 AM CDT COMPREHENSIVE METABOLIC STAT 06/09/2017 PANEL 10:12 AM CDT HC COMPLETE BLD COUNT STAT 06/09/2017 W/AUTO DIFF 10:12 AM CDT ZZESTIMATED GFR Routine 06/06/2017 4:17 AM CDT HEPATIC FUNCTION PANEL Routine 06/06/2017 4:17 AM CDT HC COMPLETE BLD COUNT Routine 06/06/2017 W/AUTO DIFF 4:17 AM CDT BASIC METABOLIC PANEL Routine 06/06/2017 4:17 AM CDT ZZESTIMATED GFR Routine 06/05/2017 3:55 AM CDT COMPREHENSIVE METABOLIC Routine 06/05/2017 PANEL 3:55 AM CDT HC COMPLETE BLD COUNT Routine 06/05/2017 W/AUTO DIFF 3:55 AM CDT ECG ED PRELIMINARY Routine 06/04/2017 INTERPRETATION 11:37 PM CDT TROPONIN Timed 06/04/2017 11:[address] ABDOMEN PELVIS W STAT 06/04/2017 CONTRAST 8:30 PM CDT XR CHEST 1 VW PORTABLE STAT 06/04/2017 7:45 PM CDT ZZESTIMATED GFR STAT 06/04/2017 7:10 PM CDT MAGNESIUM LEVEL STAT 06/04/2017 7:10 PM CDT B NATRIURETIC PEPTIDE STAT 06/04/2017 7:10 PM CDT TROPONIN STAT 06/04/2017 7:10 PM CDT CREATINE KINASE, TOTAL STAT 06/04/2017 (CPK) 7:10 PM CDT PARTIAL THROMBOPLASTIN STAT 06/04/2017 TIME (PTT) 7:10 PM CDT PROTHROMBIN TIME WITH INR STAT 06/04/2017 7:10 PM CDT HCG QUALITATIVE, URINE STAT 06/04/2017 SCREEN 7:10 PM CDT URINALYSIS SCREEN AND STAT 06/04/2017 MICROSCOPY, WITH REFLEX 7:10 PM CDT TO CULTURE LIPASE LEVEL STAT 06/04/2017 7:10 PM CDT COMPREHENSIVE METABOLIC STAT 06/04/2017 PANEL 7:10 PM CDT HC COMPLETE BLD COUNT STAT 06/04/2017 W/AUTO DIFF 7:10 PM CDT ECG 12-LEAD STAT 06/04/2017 6:[address] RENAL STONE PROTOCOL STAT 06/01/2017 12:15 AM CDT TROPONIN Routine 05/31/2017 11:55 PM CDT ZZESTIMATED GFR Routine 05/31/2017 11:55 PM CDT COMPREHENSIVE METABOLIC Routine 05/31/2017 PANEL 11:55 PM CDT CREATINE KINASE, TOTAL Routine 05/31/2017 (CPK) 11:55 PM CDT ECG 12-LEAD STAT 05/31/2017 11:32 PM CDT URINALYSIS SCREEN AND STAT 05/31/2017 MICROSCOPY, WITH REFLEX 11:00 PM CDT TO CULTURE PARTIAL THROMBOPLASTIN STAT 05/31/2017 TIME (PTT) 11:00 PM CDT PROTHROMBIN TIME WITH INR STAT 05/31/2017 11:00 PM CDT HC COMPLETE BLD COUNT STAT 05/31/2017 W/AUTO DIFF 11:00 PM CDT ECG ED PRELIMINARY Routine 05/31/2017 INTERPRETATION 10:35 PM CDT ECG ED PRELIMINARY Routine 04/23/2017 INTERPRETATION 5:05 PM CDT POC GLUCOSE Routine 04/23/2017 2:08 PM CDT XR CHEST 2 VW STAT 04/23/2017 12:22 PM CDT INFLUENZA ANTIGEN Routine 04/23/2017 12:00 PM CDT ECG 12-LEAD Routine 04/23/2017 11:54 AM CDT POC URINALYSIS DIPSTICK Routine 03/28/2017 Urinary frequency 3:17 PM [employer] POCT INFLUENZA A/B Routine 03/28/2017 Viral URI 2:54 PM [employer] after 03/11/2017 Results * CT Abdomen Pelvis W Contrast (02/15/2018 6:51 PM [employer]) Only the most recent of 13 results within the time period is included. Addenda Addendum by Mic Sarkar MD on 02/22/2018 9:31 AM ADDENDUM #1 CT imaging was performed with iterative reconstruction techniques and/or automated exposure control to reduce radiation dose. Narrative Performed At CT scan abdomen and pelvis. 02/15/2018 [facility] Clinical history: Left lower quadrant pain. Possible diverticulitis. Technique: Routine protocol CT abdomen and pelvis performed after 75 mL Omnipaque 300 intravenous contrast. No enteric contrast was administered.Coronal, sagittal and axial images generated from source data. Dose: 574.06 mGy-cm Comparison: February 03, 2018; November 19, 2017. There are a total of [address] scans of the abdomen and pelvis since September 2011, 14 of which are from January 2017 or later. Findings: Minimal dependent subsegmental atelectasis/scar. No pleural effusions. Normal heart size. Liver: Normal Gallbladder: Cholecystectomy. Mild expected ductal dilation consistent with reservoir effect unchanged from multiple prior studies. Pancreas: Normal Spleen: Normal Adrenal glands: Normal Kidneys: Normal Ureters and urinary bladder: Normal. Urinary bladder decompressed. Uterus and adnexa: Normal Bowel: Normal caliber. Normal appendix. Mild proximal sigmoid diverticulosis without wall thickening or pericolonic inflammatory change. Peritoneum: Normal Vasculature: Normal arterial caliber. Patent portal venous system. Grossly unremarkable systemic veins. Lymph nodes: Normal Skeleton: Intact. L5-S1 predominantly degenerative disc disease with near complete loss of disc space height. Soft tissues: 4 mm fat-containing umbilical hernia. Otherwise, normal. Impression: 1.No acute abnormality. 2.Mild sigmoid diverticulosis. Procedure Note Interface, Radiology Results Incoming - 02/15/2018 7:[address] [employer] [address] scan abdomen and pelvis. 02/15/2018 Clinical history: Left lower quadrant pain. Possible diverticulitis. Technique: Routine protocol CT abdomen and pelvis performed after 75 mL Omnipaque 300 intravenous contrast. No enteric contrast was administered. Coronal, sagittal and axial images generated from source data. Dose: 574.06 mGy-cm Comparison: February 03, 2018; November 19, 2017. There are a total of [address] scans of the abdomen and pelvis since September 2011, 14 of which are from January 2017 or later. Findings: Minimal dependent subsegmental atelectasis/scar. No pleural effusions. Normal heart size. Liver: Normal Gallbladder: Cholecystectomy. Mild expected ductal dilation consistent with reservoir effect unchanged from multiple prior studies. Pancreas: Normal Spleen: Normal Adrenal glands: Normal Kidneys: Normal Ureters and urinary bladder: Normal. Urinary bladder decompressed. Uterus and adnexa: Normal Bowel: Normal caliber. Normal appendix. Mild proximal sigmoid diverticulosis without wall thickening or pericolonic inflammatory change. Peritoneum: Normal Vasculature: Normal arterial caliber. Patent portal venous system. Grossly unremarkable systemic veins. Lymph nodes: Normal Skeleton: Intact. L5-S1 predominantly degenerative disc disease with near complete loss of disc space height. Soft tissues: 4 mm fat-containing umbilical hernia. Otherwise, normal. Impression: 1. No acute abnormality. 2. Mild sigmoid diverticulosis. Performing Organization Address City/State/Zipcode Phone Number [facility] [address] [place] [address] * Urinalysis screen and microscopy, with reflex to culture (02/15/2018 4:40 PM [employer]) Only the most recent of 23 results within the time period is included. Specimen site Clean catch [facility] Color, UA Yellow [facility] Appearance, UA Hazy [facility] Specific gravity, UA 1.015 1.001 - 1.035 [facility] pH, UA 7.5 5.0 - 8.5 [facility] Protein, UA Negative Negative [facility] Glucose, UA Negative Negative [facility] Ketones, UA Trace (A) Negative [facility] Bilirubin, UA Negative Negative [facility] Blood, UA Trace (A) Negative [facility] Nitrite, UA Negative Negative [facility] Urobilinogen, UA 0.2 <2.0 [facility] Leukocyte esterase, UA Negative Negative [facility] Epithelial cells, UA Many /HPF [facility] WBC, UA None seen 0 - 4 /HPF [facility] RBC, UA 0-5 0 - 5 /HPF [facility] Bacteria, UA Trace None seen [facility] Yeast, UA Many (A) [facility] Yeast with pseudohyphae, None seen [facility] Specimen Urine Performing Organization Address City/[facility] Phone Number [facility] DEPARTMENT [address] [place] [address] PATHOLOGY AND GENOMIC MEDICINE [address] * hCG qualitative, urine screen (02/15/2018 4:40 PM [employer]) Only the most recent of 9 results within the time period is included. hCG qualitative, urine Negative Negative [facility] Comment: [facility] The manufacturers stated sensitivity of HcG test for serum is >/=10 mIU/ml and urine is >/=20mIU/ml. Specimen Urine Performing Organization Address [facility] Phone Number [address] [place] [address] PATHOLOGY AND GENOMIC MEDICINE [address] * Gram stain (02/15/2018 4:40 PM [employer]) Only the most recent of 10 results within the time period is included. Gram stain result No WBC's [facility] Rare Gram positive [facility] Comment: Specimen Information Specimen Source: Urine Specimen Site: Clean catch Specimen Urine Performing Organization Address City/[facility]/Zipcode Phone Number [facility] DEPARTMENT OF [address] [place] [address] PATHOLOGY AND GENOMIC MEDICINE [address] * Urine culture (02/15/2018 4:40 PM [employer]) Only the most recent of 14 results within the time period is included. Urine culture isolate No growth after 24 hours [facility] Comment: HOSPITAL Specimen Information Specimen Source: Urine Specimen Site: Clean catch Specimen Urine Performing Organization Address City/[facility]/Zipcode Phone Number [facility] DEPARTMENT OF [address] [place] [address] PATHOLOGY AND GENOMIC MEDICINE [facility] [address] * Estimated GFR (02/15/2018 4:30 PM [employer]) Only the most recent of 14 results within the time period is included. Estimated GFR 85 mL/min/1.73 m2 [facility] Comment: [facility] CatergoryUnitsInte rpretation G1 >=90 Normal or high G2 60-89Mildly decreased [id number] Mildly to moderately decreased [id number] Moderately to severely decreased G4 15-29Severely decreased G5 <15Kidney failure The eGFR was calculated using the Chronic Kidney Disease Epidemiology Collaboration (CKD-EPI) equation. Interpretation is based on recommendations of the National Kidney Foundation-Kidney Disease Outcomes Quality Initiative (NKF-KDOQI) published in 2014. Specimen Plasma specimen Performing Organization Address City/[facility]/Zipcode Phone [place] [id number] [place] [address] PATHOLOGY AND GENOMIC MEDICINE [facility] [id number] [place] [address] * CBC with platelet and differential (02/15/2018 4:30 PM [employer]) Only the most recent of 31 results within the time period is included. WBC 8.29 4.50 - 11.00 k/uL [facility] RBC 4.46 4.20 - 5.50 m/uL [facility] HGB 14.5 12.0 - 16.0 g/dL [facility] HCT 43.4 37.0 - 47.0 % [facility] MCV 97.3 82.0 - 100.0 fL [facility] MCH 32.5 27.0 - 34.0 pg [facility] MCHC 33.4 31.0 - 37.0 g/dL [facility] RDW - SD 49.3 37.0 - 55.0 fL [facility] MPV 9.7 8.8 - 13.2 fL [facility] Platelet count 279 150 - 400 k/uL [facility] Nucleated RBC 0.00 /100 WBC [facility] Neutrophils 68.9 39.0 - 69.0 % [facility] Lymphocytes 22.8 (L) 25.0 - 45.0 % [facility] Monocytes 6.3 0.0 - 10.0 % [facility] Eosinophils 1.3 0.0 - 5.0 % [facility] Basophils 0.5 0.0 - 1.0 % [facility] Specimen Blood Performing Organization Address City/State/Zipcode Phone Number [facility] [place] [id number] [place] [address] [place] [address] PATHOLOGY AND GENOMIC MEDICINE [facility] [id number] [place] [address] [place], [place] [id number] [place] [address] * Comprehensive metabolic panel (02/15/2018 4:30 PM [employer]) Only the most recent of 30 results within the time period is included. Sodium 145 135 - 148 mEq/L [facility] Potassium 4.3 3.5 - 5.0 mEq/L [facility] Chloride 106 98 - 112 mEq/L [facility] CO2 25 24 - 31 mEq/L [facility] Anion gap 14@ANIO 7 - 15 mEq/L [facility] BUN 8 6 - 20 mg/dL [facility] Creatinine 0.80 0.50 - 0.90 mg/dL [facility] Glucose 123 (H) 65 - 99 mg/dL [facility] Calcium 9.9 8.3 - 10.2 mg/dL [facility] Protein 7.6 6.3 - 8.3 g/dL [facility] Comment: [facility] 4.6-7.0 g/dL 1 week 4.4-7.6 g/dL 7 months-1year 5.1-7.3 g/dL 1-2 years5.6-7 .5 g/dL >3 years6.0-8 .0 g/dL 18-150 6.3-8.3 g/dL Albumin 4.9 3.5 - 5.0 g/dL [facility] A/G ratio 1.8 0.7 - 3.8 [facility] Alkaline phosphatase 76 35 - 104 U/L [facility] AST 48 (H) 10 - 35 U/L [facility] ALT 43 5 - 50 U/L [facility] Total bilirubin <0.2 0.0 - 1.2 mg/dL [facility] Specimen Plasma specimen Performing Organization Address [facility] Phone Number [address] [place] [address] PATHOLOGY AND GENOMIC MEDICINE [address] * Basic metabolic panel (02/06/2018 8:52 PM [employer]) Only the most recent of 4 results within the time period is included. Sodium 145 135 - 148 mEq/L [facility] Potassium 4.1 3.5 - 5.0 mEq/L [facility] Chloride 107 98 - 112 mEq/L [facility] CO2 24 24 - 31 mEq/L [facility] Anion gap 14@ANIO 7 - 15 mEq/L [facility] BUN 12 6 - 20 mg/dL [facility] Creatinine 1.00 (H) 0.50 - 0.90 mg/dL [facility] Glucose 107 (H) 65 - 99 mg/dL [facility] Calcium 9.1 8.3 - 10.2 mg/dL [facility] Specimen Plasma specimen Performing Organization Address [facility] Phone Number [address] [place] [address] PATHOLOGY AND [facility] MEDICINE [address] * ECG 12 lead (02/03/2018 10:09 PM [employer]) Only the most recent of 12 results within the time period is included. Ventricular rate 62 [facility] Atrial rate 62 [facility] MS interval 146 [facility] QRSD interval 80 [facility] QT interval 438 [facility] QTC interval 444 [facility] MUSE P axis 1 72 [facility] MUSE QRS axis 1 8 [facility] MUSE T wave axis 67 [facility] MUSE EKG impression Normal sinus rhythm-Normal [facility] MUSE ECG-In automated comparison with ECG of 17-NOV-2017 00:14,-No significant change was found- Narrative Performed At Performing Organization Address [facility] Phone Number [facility] MUSE [address] [place] [address] * XR Chest 1 Vw Portable (02/03/2018 9:55 PM [employer]) Only the most recent of 3 results within the time period is included. Narrative Performed At EXAMINATION: XR CHEST 1 VW PORTABLE RADIANT INDICATION: abdominal pain COMPARISON: 11/28/2017 IMPRESSION: No pulmonary edema or acute airspace disease. No pleural effusion or pneumothorax. Normal cardiomediastinal silhouette. No free gas is identified under the diaphragms. [facility]-[id number] Procedure Note Hm Interface, Radiology Results Incoming - 02/03/2018 9:59 PM [employer] EXAMINATION: XR CHEST 1 VW PORTABLE INDICATION: abdominal pain COMPARISON: 11/28/2017 IMPRESSION: No pulmonary edema or acute airspace disease. No pleural effusion or pneumothorax. Normal cardiomediastinal silhouette. No free gas is identified under the diaphragms. [facility]-[id number] Performing Organization Address [facility] Phone Number [facility] [address] [place] [address] * Respiratory pathogen panel (02/03/2018 8:45 PM [employer]) Respiratory pathogen Negative for all pathogens [facility] panel tested: HOSPITAL Negative for Adenovirus Negative for Coronavirus HKU1 Negative for Coronavirus NL63 Negative for Coronavirus 229E Negative for Coronavirus OC43 Negative for Human Metapneumovirus Negative for Rhinovirus/Enterovirus Negative for Influenza A Negative for Influenza A/H1 Negative for Influenza A/H3 Negative for Influenza A/H1-2009 Negative for Influenza B Negative for Parainfluenza Virus 1 Negative for Parainfluenza Virus 2 Negative for Parainfluenza Virus 3 Negative for Parainfluenza Virus 4 Negative for Respiratory Syncytial Virus Negative for Bordetella pertussis Negative for Chlamydophila pneumoniae Negative for Mycoplasma pneumoniae This real-time PCR assay detects the presence of nucleic acids (RNA or DNA) for the respiratory pathogens listed. A result of "Not-detected" does not exclude the possibility of the presence of one or more pathogens at concentrations less than the detectable limits of the assay. Comment: Specimen Information Specimen Source: Nasopharyngeal Specimen Site: not spec Specimen Nasopharyngeal Performing Organization Address [facility] Phone Number [facility] DEPARTMENT OF [address] [place] [address] PATHOLOGY AND [facility] MEDICINE [address] * Troponin (02/03/2018 8:45 PM [employer]) Only the most recent of 10 results within the time period is included. Troponin <0.300 0.000 - 0.300 ng/mL [facility] Comment: [facility] 0.30 - 1.49 ng/mlMay indicate increased risk of acute coronary syndrome. >=1.5 ng/ml Consistent with acute myocardial infarction. The diagnostic value of a single normal or non-diagnostic result is questionable.Serial samples at 2-6 hour intervals are required to rule out acute myocardial injury. Specimen Plasma specimen Performing Organization Address [facility] Phone [place] [address] [place] [address] PATHOLOGY AND GENOMIC MEDICINE [facility] [id number] [place] [address] * Blood culture, aerobic & anaerobic (02/03/2018 8:45 PM [employer]) Only the most recent of 2 results within the time period is included. Blood culture isolate No growth after 5 days of [facility] incubation. HOSPITAL Comment: Specimen Information Specimen Source: Blood Specimen Site: Hand, right Specimen Blood - Hand, right Performing Organization Address [facility] Phone Number [facility] DEPARTMENT OF [address] [place] [address] PATHOLOGY AND GENOMIC MEDICINE [address] * Partial thromboplastin time, activated (02/03/2018 8:45 PM [employer]) Only the most recent of 8 results within the time period is included. PTT 32.6 23.0 - 36.0 sec [facility] Comment: [facility] PTT therapeutic range for unfractionated heparin is 61.0-112.0 seconds which corresponds to Anti-Xa 0.3-0.7 U/ml. Specimen Blood Performing Organization Address [facility] Phone Number [address] AND [address] * Prothrombin time with INR (02/03/2018 8:45 PM [employer]) Only the most recent of 9 results within the time period is included. Prothrombin time 12.3 11.5 - 14.5 sec [facility] INR 0.9 [facility] Comment: [facility] The International Normalized Ratio (INR) is a therapeutic monitoring tool for patients who are stable on oral anticoagulant therapy. An INR of 2.0-3.0 is suggested for deep vein thrombosis/pulmonary embolism. Specimen Blood Performing Organization Address [facility] Phone Number [address] * Influenza antigen (02/03/2018 8:45 PM [employer]) Only the most recent of 3 results within the time period is included. Influenza antigen Negative for Influenza A/B [facility] antigen. [facility] Comment: Specimen Information Specimen Source: Nasopharyngeal Specimen Site: not spec. Specimen Nasopharyngeal Performing Organization Address [facility] Phone Number [address] * B natriuretic peptide (02/03/2018 8:45 PM [employer]) Only the most recent of 5 results within the time period is included. BNP 23 0 - 100 pg/mL [facility] Specimen Blood Performing Organization Address [facility] Phone Number [place] [address] [address] * Lipase level (02/03/2018 8:45 PM [employer]) Only the most recent of 20 results within the time period is included. Lipase 43 13 - 60 U/L [facility] Specimen Plasma specimen Performing Organization Address [facility] Phone Number [address] [place] [address] PATHOLOGY AND GENOMIC MEDICINE [address] * Creatine kinase, total (CPK) (02/03/2018 8:45 PM [employer]) Only the most recent of 6 results within the time period is included. Creatine kinase 88 26 - 192 U/L [facility] Specimen Plasma specimen Performing Organization Address [facility] Phone Number [address] [place] [address] PATHOLOGY AND GENOMIC MEDICINE [address] * ECG ED Preliminary Interpretation - Not an Order (02/03/2018 8:21 PM [employer]) Only the most recent of 10 results within the time period is included. Narrative Performed At Ron Stout MD 02/04/20182:12 AM ECG ED Preliminary Interpretation - Not an Order Performed by: Ron Stout MD Authorized by: Ron Stout MD ECG reviewed by ED Physician in the absence of a echocardiography tech: yes Interpretation: Interpretation: normal Rate: ECG rate:62 ECG rate assessment: normal Rhythm: Rhythm: sinus rhythm Ectopy: Ectopy: none QRS: QRS axis:Normal QRS intervals:Normal ST segments: ST segments:Normal T waves: T waves: normal * hCG qualitative, serum screen (01/22/2018 5:30 PM [employer]) Only the most recent of 5 results within the time period is included. hCG qualitative, serum Negative [facility] Specimen Blood Performing Organization Address [facility] Phone Number [address] [place] [address] PATHOLOGY AND GENOMIC MEDICINE [address] * Lactic acid level, SEPSIS - Now and repeat 2x every 3 hours (12/10/2017 11:10 PM CDT) Lactic acid 0.8 0.5 - 2.2 mmol/L [facility] OF PATHOLOGY AND GENOMIC MEDICINE Specimen Plasma specimen Performing Organization Address [facility] Phone Number [facility] [place] [place] [address] [place] [address] PATHOLOGY AND GENOMIC MEDICINE * Amylase level (12/10/2017 11:10 PM CDT) Only the most recent of 2 results within the time period is included. Amylase 96 (H) 13 - 73 U/L [facility] PATHOLOGY AND GENOMIC MEDICINE Specimen Plasma specimen Performing Organization Address [facility] Phone Number [facility] [place] [address] [address] [place] [address] PATHOLOGY AND GENOMIC MEDICINE * XR Abdomen Acute Inc Chest (11/28/2017 7:57 PM CDT) Narrative Performed At EXAM: XR [facility]BD[facility]EN [facility]UTE INC [facility] CLINICAL H[facility]: Nauseavomiting COMPARISON:CT, 11/19/2017. IMPRESSION: Nondilated, nonobstructive bowel gas pattern. No free intraperitoneal gas or air-fluid levels visualized. Cholecystectomy clips are seen within the right upper quadrant. No radiographic evidence for sizable focal or confluent consolidation. No pleural effusion or pneumothorax. Minimal biapical scarring is noted. The cardiomediastinal silhouette is normal. No acute osseous abnormalities. [facility]-[id number] Procedure Note Hm Interface, Radiology Results Incoming - 11/28/2017 8:08 PM CDT EXAM: XR ABDOMEN ACUTE INC CHEST CLINICAL HISTORY: Nausea vomiting COMPARISON: CT, 11/19/2017. IMPRESSION: Nondilated, nonobstructive bowel gas pattern. No free intraperitoneal gas or air-fluid levels visualized. Cholecystectomy clips are seen within the right upper quadrant. No radiographic evidence for sizable focal or confluent consolidation. No pleural effusion or pneumothorax. Minimal biapical scarring is noted. The cardiomediastinal silhouette is normal. No acute osseous abnormalities. [facility]-[id number] Performing Organization Address [facility]/Zipcode Phone Number [facility] [address] [place] [address] * Gastrointestinal panel (11/23/2017 11:26 AM CDT) Gastrointestinal panel Positive for C. difficile [facility] DEPARTMENT OF toxin PATHOLOGY AND GENOMIC MEDICINE Negative for all other pathogens tested: Negative for Salmonella Negative for Campylobacter Negative for Diarrheagenic E coli/Shigella Negative for Shiga-like toxin-producing E coli Negative for Plesiomonas shigelloides Negative for Yersinia enterocolitica Negative for Vibrio species Negative for Cryptosporidium Negative for Giardia lamblia Negative for Cyclospora cayeteanensis Negative for Entamoeba histolytica Negative for Adenovirus F 40/41 Negative for Astrovirus Negative for Norovirus GI/GII Negative for Rotavirus A Negative for Sapovirus Negative for E coli 0157 This real-time PCR assay detects the presence of nucleic acids (RNA or DNA) for the gastrointestinal pathogens listed. A result of "Not-detected" does not exclude the possibility of the presence of one or more pathogens at concentrations less than the detectable limits of the assay. (A) Comment: Specimen Information Specimen Source: Stool Specimen Site: Not otherwise specified Specimen Stool - Not otherwise specified Performing Organization Address City/[facility] [place] [address] PATHOLOGY AND GENOMIC MEDICINE * Thyroid stimulating hormone (11/22/2017 8:40 AM CDT) TSH 0.79 0.27 - 4.20 uIU/mL [facility] DEPARTMENT OF PATHOLOGY AND [facility] Specimen Plasma specimen Performing Organization Address [facility] Phone Number [address] [place] [address] PATHOLOGY AND GENOMIC MEDICINE * Magnesium level (11/22/2017 8:40 AM CDT) Only the most recent of 2 results within the time period is included. Magnesium 2.3 1.6 - 2.6 mg/dL [facility] DEPARTMENT OF PATHOLOGY AND GENOMIC MEDICINE Specimen Plasma specimen Performing Organization Address [facility] Phone Number [address] [place] [address] PATHOLOGY AND [facility] MEDICINE * Smear review (11/17/2017 12:45 AM CDT) Platelet slide review Jonny adequate [facility] DEPARTMENT OF PATHOLOGY AND GENOMIC MEDICINE Performing Organization Address [facility] Phone Number [address] [place] [address] PATHOLOGY AND GENOMIC MEDICINE * XR Abdomen 1 Vw (10/17/2017 1:14 AM CDT) Narrative Performed At EXAMINATION:XR ABDOMEN 1 VW [facility] CLINICAL HISTORY:abd painCT yesterday showed stool COMPARISON:None. IMPRESSION: The bowel gas pattern is nonspecific, nonobstructive. Mild-moderate fecal material and gas throughout the colon. Few pelvic phleboliths are noted. Right upper quadrant clips partially visualized. Mild contrast material in the urinary bladder. Regional skeletal structures are within normal limits. [facility]-[id number] Procedure Note Hm Interface, Radiology Results Incoming - 10/17/2017 1:23 AM CDT EXAMINATION: XR ABDOMEN 1 VW CLINICAL HISTORY: abd pain CT yesterday showed stool COMPARISON: None. IMPRESSION: The bowel gas pattern is nonspecific, nonobstructive. Mild-moderate fecal material and gas throughout the colon. Few pelvic phleboliths are noted. Right upper quadrant clips partially visualized. Mild contrast material in the urinary bladder. Regional skeletal structures are within normal limits. [facility]-[id number] Performing Organization Address City/State/Zipcode Phone Number [facility] [address] [place] [address] * Estimated GFR (10/15/2017 12:27 PM CDT) Only the most recent of 19 results within the time period is included. GFR Non Af Amer 52 (A) mL/min/1.73 m2 [facility] DEPARTMENT OF PATHOLOGY AND GENOMIC MEDICINE GFR Af Amer 64 mL/min/1.73 m2 [facility] DEPARTMENT OF Comment: PATHOLOGY AND Chronic kidney disease: <60 GENOMIC MEDICINE mL/min/1.73m2 Kidney failure: <15 mL/min/1.73m2 The estimated GFR is calculated from the IDMS-traceable Modification of Diet in Renal Disease Equation. The accuracy of the calculation is poor when the creatinine is normal. Calculated values >90 mL/min/1.73m2 are not reported. This equation has not been validated in children (<18 years), women, the elderly (>70 years), or ethnic groups other than Caucasians and Americans. Specimen Plasma specimen Performing Organization Address City/State/Zipcode Phone Number [facility] DEPARTMENT [address] [place] [address] PATHOLOGY AND GENOMIC MEDICINE * Hepatic function panel (10/15/2017 12:27 PM CDT) Only the most recent of 2 results within the time period is included. Albumin 4.6 3.5 - 5.0 g/dL [facility] DEPARTMENT OF PATHOLOGY AND GENOMIC MEDICINE Total bilirubin <0.2 0.0 - 1.2 mg/dL [facility] DEPARTMENT OF PATHOLOGY AND GENOMIC MEDICINE Bilirubin direct <0.1 0.0 - 0.3 mg/dL [facility] DEPARTMENT OF PATHOLOGY AND GENOMIC MEDICINE Alkaline phosphatase 77 35 - 104 U/L [facility] DEPARTMENT OF PATHOLOGY AND GENOMIC MEDICINE Protein 7.4 6.3 - 8.3 g/dL [facility] DEPARTMENT OF Comment: PATHOLOGY AND [place] GENOMIC MEDICINE 4.6-7.0 g/dL 1 week 4.4-7.6 g/dL 7 months-1year 5.1-7.3 g/dL 1-2 years5.6-7 .5 g/dL >3 years6.0-8 .0 g/dL 18-150 6.3-8.3 g/dL ALT 18 5 - 50 U/L [facility] DEPARTMENT OF PATHOLOGY AND GENOMIC MEDICINE AST 22 10 - 35 U/L [facility] DEPARTMENT OF PATHOLOGY AND GENOMIC MEDICINE Specimen Plasma specimen Performing Organization Address City/[facility] Phone Number [address] [address] PATHOLOGY AND GENOMIC MEDICINE * XR Chest 2 Vw (10/01/2017 11:21 PM CDT) Only the most recent of 3 results within the time period is included. Narrative Performed At Examination:XR CHEST 2 VW [facility] Clinical History: Chest painnormal ekg, Chest pain Comparison: None. Technique: PA and lateral views of the chest were obtained. Findings: The lungs are free of infiltrate. The heart size is normal. No pleural effusion is seen. Impression: No active cardiopulmonary disease identified. [facility]-[id number] Procedure Note Interface, Radiology Results Incoming - 10/01/2017 11:26 PM CDT Examination: XR CHEST 2 VW Clinical History: Chest pain normal ekg, Chest pain Comparison: None. Technique: PA and lateral views of the chest were obtained. Findings: The lungs are free of infiltrate. The heart size is normal. No pleural effusion is seen. Impression: No active cardiopulmonary disease identified. [facility]-[id number] Performing Organization Address City/[facility]/Zipcode Phone Number [facility] [address] [place] [address] * Lactic acid level (08/07/2017 2:50 AM CDT) Lactic acid 1.2 0.5 - 2.2 mmol/L [facility] DEPARTMENT OF PATHOLOGY AND GENOMIC MEDICINE Specimen Plasma specimen Performing Organization Address City/State/Zipcode Phone Number [facility] [place] [address] [place] [address] PATHOLOGY AND GENOMIC MEDICINE * MRI Brain Wo Contrast (07/24/2017 1:54 AM CDT) Narrative Performed At EXAMINATION: MRI BRAIN WO CONTRAST [facility] CLINICAL HISTORY: posterior acute HAhx aneurysm COMPARISON:CT 07/24/2017. TECHNIQUE: Multiplanar and multisequence MRI imaging of the brain was obtained without contrast. FINDINGS: No diffusion restriction to suggest acute ischemia. No abnormal susceptibility to suggest intracranial hemorrhage. Brain volume is normal. Mildly prominent retrocerebellar CSF space, possibly related to an arachnoid cyst, without significant mass effect. No acute hydrocephalus or extra-axial fluid collection identified. No intracranial mass effect. Midline structures are maintained. The major flow voids in the skull base are identified. Visualized paranasal sinuses and mastoid air cells are clear. Orbits are unremarkable. Visualized soft tissue shows no gross abnormalities. IMPRESSION: No acute intracranial abnormality identified. [facility]-[id number] Procedure Note Hm Interface, Radiology Results Incoming - 07/24/2017 2:03 AM CDT EXAMINATION: MRI BRAIN WO CONTRAST CLINICAL HISTORY: posterior acute SANCHEZ hx aneurysm COMPARISON: CT 07/24/2017. TECHNIQUE: Multiplanar and multisequence MRI imaging of the brain was obtained without contrast. FINDINGS: No diffusion restriction to suggest acute ischemia. No abnormal susceptibility to suggest intracranial hemorrhage. Brain volume is normal. Mildly prominent retrocerebellar CSF space, possibly related to an arachnoid cyst, without significant mass effect. No acute hydrocephalus or extra-axial fluid collection identified. No intracranial mass effect. Midline structures are maintained. The major flow voids in the skull base are identified. Visualized paranasal sinuses and mastoid air cells are clear. Orbits are unremarkable. Visualized soft tissue shows no gross abnormalities. IMPRESSION: No acute intracranial abnormality identified. [facility]-[id number] Performing Organization Address City/State/Zipcode Phone Number [facility] [address] [place] [address] * MRA Head Wo Contrast (07/24/2017 1:40 AM CDT) Narrative Performed At EXAM: MRA HEAD WO CONTRAST [facility] CLINICAL HISTORY: Posterior HAhx aneuryms reported TECHNIQUE: [id number] MRA images of the [place] vessels were obtained with multiplanar and 3-D reconstructive algorithms. COMPARISON:None FINDINGS: Fenestration of the right A1 JORY is noted. The internal carotid arteries and bifurcations into the middle cerebral and anterior cerebral arteries are patent without significant stenosis. The vertebral arteries and basilar artery as well as the posterior cerebral arteries are patent with no significant stenosis. IMPRESSION: 1.Fenestration of the right A1 JORY is noted. MRA of the [place] without evidence of significant flow-limiting stenosis. [facility]-[id number] Procedure Note Interface, Radiology Results Incoming - 07/24/2017 1:49 AM CDT EXAM: MRA HEAD WO CONTRAST CLINICAL HISTORY: Posterior SANCHEZ hx aneuryms reported TECHNIQUE: [id number] MRA images of the [place] vessels were obtained with multiplanar and 3-D reconstructive algorithms. COMPARISON: None FINDINGS: Fenestration of the right A1 JORY is noted. The internal carotid arteries and bifurcations into the middle cerebral and anterior cerebral arteries are patent without significant stenosis. The vertebral arteries and basilar artery as well as the posterior cerebral arteries are patent with no significant stenosis. IMPRESSION: 1. Fenestration of the right A1 JORY is noted. MRA of the [place] without evidence of significant flow-limiting stenosis. [facility]-[id number] Performing Organization Address City/State/Zipcode Phone Number [facility] [address] [place] [address] * CT Head Wo Contrast (07/24/2017 12:39 AM CDT) Narrative Performed At CT HEAD WO CONTRAST [facility] CLINICAL INDICATION:Headache TECHNIQUE: Routine unenhanced multidetector CT examination of the brain. CT imaging was performed with iterative reconstruction technique and/or automated exposure control to reduce radiation dose. COMPARISON:10/03/2016. FINDINGS: The ventricles and sulci are normal in caliber and configuration. There is a 1.9 x 3.4 cm posterior fossa arachnoid cyst. There is no significant mass effect or midline shift. Juarez-white matter differentiation is maintained. No acute intracranial hemorrhage is identified. There is no extra-axial fluid collection. Basal cisterns are patent. The visualized orbits are unremarkable. The paranasal sinuses and mastoid air cells are clear. The calvarium is intact without depressed fracture. IMPRESSION: No acute intracranial abnormality. [facility]-[id number] Procedure Note Hm Interface, Radiology Results Incoming - 07/24/2017 12:[address] HEAD WO CONTRAST CLINICAL INDICATION: Headache TECHNIQUE: Routine unenhanced multidetector CT examination of the brain. CT imaging was performed with iterative reconstruction technique and/or automated exposure control to reduce radiation dose. COMPARISON: 10/03/2016. FINDINGS: The ventricles and sulci are normal in caliber and configuration. There is a 1.9 x 3.4 cm posterior fossa arachnoid cyst. There is no significant mass effect or midline shift. Juarez-white matter differentiation is maintained. No acute intracranial hemorrhage is identified. There is no extra-axial fluid collection. Basal cisterns are patent. The visualized orbits are unremarkable. The paranasal sinuses and mastoid air cells are clear. The calvarium is intact without depressed fracture. IMPRESSION: No acute intracranial abnormality. [facility]-[id number] Performing Organization Address City/[facility]/Zipcode Phone Number [facility] [address] [place] [address] * D-dimer (07/06/2017 2:04 PM CDT) D-dimer <0.27 0.00 - 0.40 ug/mL FEU [facility] DEPARTMENT OF Comment: PATHOLOGY AND Units are ug/ml Fibrinogen [employer] MEDICINE Equivalent Unit. When combined with low clinical probability, D-dimer results of less than 0.5 ug/ml FEU have a good negativepredictive value in excluding PE or DVT. For D-dimer results greater than 0.5ug/ml FEU further testing is indicated if PE or DVT is suspectedclinically. Elevated D-dimer results have been reported in DVT, PE, and DIC cases and may indicate the presence of a clot. D-dimer results may be elevated due to old age, , inflammatory diseases, trauma, post-operative states, sepsis, and malignancies. Specimen Blood Performing Organization Address City/[facility]/Zipcode Phone Number [address] [place] [address] PATHOLOGY AND GENOMIC MEDICINE * Type and screen (06/09/2017 10:12 AM CDT) ABO grouping O [facility] DEPARTMENT OF PATHOLOGY AND GENOMIC MEDICINE Rh type POS [facility] DEPARTMENT OF PATHOLOGY AND GENOMIC MEDICINE Antibody screen NEG [facility] DEPARTMENT OF PATHOLOGY AND GENOMIC MEDICINE Specimen Blood Performing Organization Address City/State/Zipcode Phone Number [facility] [place] [place] [address] [address] [place] [address] PATHOLOGY AND GENOMIC MEDICINE * CT Renal Stone Protocol (06/01/2017 12:15 AM CDT) Narrative Performed At CT RENAL STONE PROTOCOL RADIANT CLINICAL INDICATION:flank pain TECHNIQUE: Multidetector CT of the abdomen and pelvis was performed without intravenous administration of iodinated contrast with multiplanar reformats. CT scans are performed using radiation dose reduction techniques (iterative reconstruction and/or automated exposure control). Technical factors are evaluated and adjusted to ensure appropriate moderation of exposure. Automated dose management technology is applied to adjust radiation exposure while achieving a diagnostic quality image. COMPARISON:CT 01/30/2017. FINDINGS: Evaluation of abdominopelvic contents limited due to lack of IV contrast. Lung bases:Dependent subsegmental atelectasis/scarring. Liver:Normal. Gallbladder and biliary:The gallbladder is absent. Clips within the gallbladder fossa. Common bile duct is grossly not dilated. Pancreas:Normal. Spleen:Normal. Gastrointestinal:Scattered colonic diverticula. Large and small bowel are normal in caliber. Appendix is visualized and appears normal. Adrenals:Normal. Kidneys and ureters:No renal or ureteral calculi are visualized. No hydronephrosis. Urinary bladder: Well-distended. No urinary bladder calculi are visualized. Lymph nodes:No enlarged lymph nodes in the abdomen or pelvis. Peritoneum:No ascites or free air. Vascular:Unremarkable, though evaluation of vessel lumens is limited due to lack of IV contrast. Reproductive organs:Uterus is normal. Unremarkable adnexae. Abdominal wall:Unremarkable. Bones:Moderate-severe degenerative disc changes at L5-S1. IMPRESSION: Negative CT for acute pathology within the abdomen and pelvis. No renal, ureteral, or urinary bladder calculi are visualized. [facility]-[id number] Procedure Note Hm Interface, Radiology Results Incoming - 06/01/2017 12:[address] RENAL STONE PROTOCOL CLINICAL INDICATION: flank pain TECHNIQUE: Multidetector CT of the abdomen and pelvis was performed without intravenous administration of iodinated contrast with multiplanar reformats. CT scans are performed using radiation dose reduction techniques (iterative reconstruction and/or automated exposure control). Technical factors are evaluated and adjusted to ensure appropriate moderation of exposure. Automated dose management technology is applied to adjust radiation exposure while achieving a diagnostic quality image. COMPARISON: CT 01/30/2017. FINDINGS: Evaluation of abdominopelvic contents limited due to lack of IV contrast. Lung bases: Dependent subsegmental atelectasis/scarring. Liver: Normal. Gallbladder and biliary: The gallbladder is absent. Clips within the gallbladder fossa. Common bile duct is grossly not dilated. Pancreas: Normal. Spleen: Normal. Gastrointestinal: Scattered colonic diverticula. Large and small bowel are normal in caliber. Appendix is visualized and appears normal. Adrenals: Normal. Kidneys and ureters: No renal or ureteral calculi are visualized. No hydronephrosis. Urinary bladder: Well-distended. No urinary bladder calculi are visualized. Lymph nodes: No enlarged lymph nodes in the abdomen or pelvis. Peritoneum: No ascites or free air. Vascular: Unremarkable, though evaluation of vessel lumens is limited due to lack of IV contrast. Reproductive organs: Uterus is normal. Unremarkable adnexae. Abdominal wall: Unremarkable. Bones: Moderate-severe degenerative disc changes at L5-S1. IMPRESSION: Negative CT for acute pathology within the abdomen and pelvis. No renal, ureteral, or urinary bladder calculi are visualized. [facility]-[id number] Performing Organization Address City/State/Zipcode Phone Number [facility] [address] [place] [address] * POC glucose (04/23/2017 2:08 PM CDT) POC glucose 93 65 - 99 mg/dL [facility] DEPARTMENT OF Comment: PATHOLOGY AND Meter ID: [id number] GENOMIC MEDICINE Test Preparation Tutor: Ines Sandra Performing Organization Address City/[facility]/Zipcode Phone Number [address] [place] [address] PATHOLOGY AND GENOMIC MEDICINE * POC urinalysis dipstick (03/28/2017 3:17 PM [employer]) Color urine, POC Yellow Clarity urine, POC Clear Glucose urine, POC Negative Negative Bilirubin urine, POC Negative Negative Ketones urine, POC Negative Negative Specific gravity urine, 1.015 1.005 - 1.030 POC Blood urine, POC Trace (A) Negative pH urine, POC 7.5 5.0, 5.5, 6.0, 6.5, 7.0, 7.5, 8.0, 8.5 Protein urine, POC Negative Negative Urobilinogen urine, POC <2.0 <2.0 Nitrite urine, POC Negative Negative Leukocyte esterase urine, Negative Negative POC Specimen Urine * POC Influenza A/B (03/28/2017 2:54 PM [employer]) Rapid Influenza A Ag Negative Rapid Influenza B Ag Negative Specimen Swab after 03/11/2017 Insurance Payer Benefit Subscriber ID Type Phone Address Plan / Group BCBS MEDICARE BLUE xxxxxxxxxxxx HMO MEDICARE ADVANTAGE HMO Advance Directives Patient has advance care planning documents, and code status on file. For more i nformation, please contact: Dominic Valentin [address] [place] [address] Date Inactivated Comments Code Status Date Activated 11/20/2017 11:13 AM Full Code 11/19/2017 11:24 PM Code Status decision reached by: Patient 07/10/2017 3:17 PM Full Code 07/08/2017 7:21 PM Code Status decision reached by: Patient
--- OUTSIDE RECORDS SUMMARY | 2018-03-12 21:25 | XMS REPORT ---
Author [facility] Address Unknown Phone Unavailable Care Team Providers Care Conduit Mechanic Name Role Phone Unavailable Unavailable Payers Payer Name Policy Type Policy Number Effective Date Expiration Date Problems This patient has no known problems. Allergies, Adverse Reactions, Alerts Allergy Name Allergy Type Status Severity Reaction(s) Onset Date Inactive Date Treating Clinician Comments prednisone DA Active MT 2018-03-11 00:00:00 cephalexin DA Active MT 2018-03-11 00:00:00 tramadol DA Active U 2018-03-11 00:00:00 prednisone DA Active MT 2018-03-07 00:00:00 cephalexin DA Active MT 2018-03-07 00:00:00 tramadol DA Active U 2018-03-07 00:00:00 prednisone DA Active MT 2018-02-18 00:00:00 cephalexin DA Active MT 2018-02-18 00:00:00 tramadol DA Active U 2018-02-18 00:00:00 prednisone DA Active MT 2018-02-06 00:00:00 cephalexin DA Active MT 2018-02-06 00:00:00 tramadol DA Active U 2018-02-06 00:00:00 prednisone DA Active MT 2017-12-10 00:00:00 cephalexin DA Active MT 2017-12-10 00:00:00 tramadol DA Active U 2017-12-10 00:00:00 prednisone DA Active MT 2017-11-29 00:00:00 tramadol DA Active U 2017-11-29 00:00:00 prednisone DA Active MT 2017-10-03 00:00:00 cephalexin DA Active MT 2017-10-03 00:00:00 Medications This patient has no known medications. Results Test Description Test Time Test Comments Text Results Atomic Results Result Comments - CT ABD PELVIS W/CONT 2018-03-11 03:51:00 Name: ERROL WINSTON [facility] : 1965 Age/S: 52 / F [address] [facility] Unit #: [id number] Loc: [place] [address] Phys: Jason Thomas DO Acct: [id number] Dis Date: Status: REG ER PHONE #: [phone] Exam Date: 03/11/2018252 FAX #: [phone] Reason: lower abd pain EXAMS: CPT CODE: [id number] CT ABD PELVIS W/CONT 81187 EXAM: - CT ABD PELVIS W/CONT INDICATION: 52 years -old Female with lower abd pain TECHNIQUE: Contrast - IV contrast was given. No oral contrast was given Portal venous phase - abdomen and pelvis No delayed phase images were obtained. Reconstructions - coronal and sagittal planes Automated exposure reduction (Auto mA/Smart mA) was utilized in compliance with ACR Image Wisely with DLP of 1059 mGy-cm. COMPARISON: 03/07/2018 FINDINGS: Statements: None. Thoracic: Mild basilar atelectasis is noted. Hepatobiliary: The liver is normal without focal lesion. Cholecystectomy clips are present. Pancreas: Normal. Spleen: Normal. Adrenals: Normal. Genitourinary: The kidneys are normal. No evidence of hydronephrosis. Evaluation of the bladder is limited, but no obvious bladder abnormality is present. Gastrointestinal: No bowel obstruction or perienteric inflammation. The appendix is normal. Vascular: No evidence of aneurysm or dissection. Lymphatics: No enlarged lymph nodes by CT size criteria. Bones/Soft Tissues: No acute osseous findings. No ventral hernias. Peritoneum/Other: No extraluminal air. No extraluminal fluid. IMPRESSION: PAGE 1 Signed Report (CONTINUED) Name: ERROL WINSTON [facility] : 1965 Age/S: 52 / F [address] [facility] Unit #: [id number] Loc: [place] [address] Phys: Jason Thomas DO Acct: [id number] Dis Date: Status: REG ER PHONE #: [phone] Exam Date: 03/11/2018252 FAX #: [phone] Reason: lower abd pain EXAMS: CPT CODE: [id number] CT ABD PELVIS W/CONT 37062 <Continued> 1. No evidence of bowel obstruction. No acute inflammatory process. No other acute abnormality within the abdomen or pelvis. No changes from prior study. at 0351 Reported and signed by: Kaz Hernandez MD CC: Jason Thomas DO Technologist:RT Josh(R)(CT) CTDI: DLP: Trnscb Date/Time: 03/11/2018 (350) [email or web address] Orig Print D/T: S: 03/11/2018 (0354) CTDI: DLP: PAGE 2 Signed Report BASIC METABOLIC PANEL 2018-03-11 02:36:00 SODIUM (test code=NA) 141 mmol/L 136-145 POTASSIUM (test code=K) 3.9 mmol/L 3.5-5.1 CHLORIDE (test code=CL) 106.0 mmol/L 98-107 CARBON DIOXIDE (test code=CO2) 28.0 mmol/L 21-32 ANION GAP (test code=GAP) 10.9 10-20 GLUCOSE (test code=GLU) 106 mg/dL 74-106 BLOOD UREA NITROGEN (test code=BUN) 11 mg/dL 7-18 GLOMERULAR FILTRATION RATE (test code=GFR) 59 mL/min >=60 Estimated GFR by using Modified MDRD formula.Chronic kidney disease is defined as either kidney damageor GFR <60 mL/min/1.73 m2 for >3 months. CREATININE (test code=CREAT) 1.00 mg/dL 0.55-1.02 Note change in reference range due to change in reagent. BUN/CREATININE RATIO (test code=BUN/CREA) 11.4 10-20 CALCIUM (test code=CA) 8.8 mg/dL 8.5-10.1 HEPATIC FUNCTION [id number] 02:36:00* Test Item Value Reference Range Comments TOTAL PROTEIN (test code=PROT) 7.1 gram/dL 6.4-8.2 ALBUMIN (test code=ALB) 3.6 g/dL 3.4-5.0 GLOBULIN (test code=GLOB) 3.5 gram/dL 2.7-4.2 ALBUMIN/GLOBULIN RATIO (test code=A/G) 1.0 0.75-1.50 BILIRUBIN TOTAL (test code=BILT) 0.20 mg/dL 0.0-1.0 BILIRUBIN DIRECT (test code=BILD) < 0.05 mg/dL 0.0-0.20 SGOT/AST (test code=AST) 20 IUnit/L 15-37 SGPT/ALT (test code=ALT) 28 IUnit/L 12-78 ALKALINE PHOSPHATASE TOTAL (test code=ALKP) 66 IUnit/L 45-117 Note change in reference range due to change in reagent. [id number] 02:36:00* Test Item Value Reference Range Comments LIPASE (test code=LIP) 284 U/L 73.0-393.0 [id number] 02:36:00* Test Item Value Reference Range Comments TROPONIN-I (test code=TROPI) <0.015 ng/mL 0-0.045 BASIC METABOLIC [id number] 02:21:00* Test Item Value Reference Range Comments SODIUM (test code=NA) 141 mmol/L 136-145 POTASSIUM (test code=K) 3.9 mmol/L 3.5-5.1 CHLORIDE (test code=CL) 106.0 mmol/L 98-107 CARBON DIOXIDE (test code=CO2) mmol/L 21-32 ANION GAP (test code=GAP) 10-20 GLUCOSE (test code=GLU) mg/dL 74-106 BLOOD UREA NITROGEN (test code=BUN) mg/dL 7-18 GLOMERULAR FILTRATION RATE (test code=GFR) mL/min >=60 CREATININE (test code=CREAT) mg/dL 0.55-1.02 BUN/CREATININE RATIO (test code=BUN/CREA) 10-20 CALCIUM (test code=CA) mg/dL 8.5-10.1 HEPATIC FUNCTION [id number] 02:21:00* Test Item Value Reference Range Comments TOTAL PROTEIN (test code=PROT) gram/dL 6.4-8.2 ALBUMIN (test code=ALB) g/dL 3.4-5.0 GLOBULIN (test code=GLOB) gram/dL 2.7-4.2 ALBUMIN/GLOBULIN RATIO (test code=A/G) 0.75-1.50 BILIRUBIN TOTAL (test code=BILT) mg/dL 0.0-1.0 BILIRUBIN DIRECT (test code=BILD) mg/dL 0.0-0.20 SGOT/AST (test code=AST) IUnit/L 15-37 SGPT/ALT (test code=ALT) IUnit/L 12-78 ALKALINE PHOSPHATASE TOTAL (test code=ALKP) IUnit/L 45-117 [id number] 02:21:00* Test Item Value Reference Range Comments LIPASE (test code=LIP) U/L 73.0-393.0 [id number] 02:21:00* Test Item Value Reference Range Comments TROPONIN-I (test code=TROPI) ng/mL 0-0.045 URINALYSIS [id number] 02:17:00* Test Item Value Reference Range Comments UA COLOR (test code=COLU) YELLOW YELLOW UA APPEARANCE (test code=APPU) CLEAR CLEAR UA GLUCOSE DIPSTICK (test code=DGLUU) NEGATIVE mg/dL NEGATIVE UA BILIRUBIN DIPSTICK (test code=BILU) NEGATIVE NEGATIVE UA KETONE DIPSTICK (test code=KETU) TRACE mg/dL NEGATIVE UA SPECIFIC GRAVITY (test code=SGU) >=1.030 1.001-1.035 UA BLOOD DIPSTICK (test code=ALCIRA) TRACE NEGATIVE UA PH DIPSTICK (test code=MIKE) 5.5 5.0-8.0 UA PROTEIN DIPSTICK (test code=PROU) NEGATIVE mg/dL Neg-15 UA UROBILINIOGEN DIPSTICK (test code=URO) 0.2 mg/dL 0.0-0.2 UA NITRITE DIPSTICK (test code=MARZENA) NEGATIVE NEGATIVE UA LEUKOCYTE ESTERASE W REFLEX (test code=LEUUR) NEGATIVE NEGATIVE UA WBC (test code=WBCU) 0-5 per HPF 0-5 IN SOME URINARY TRACT INFECTIONS THERE MAY NOT BE ENOUGHWBCs IN THE URINE TO TRIGGER AN AUTOMATIC (REFLEX) URINECULTURE. A SEPERATE ORDER FOR URINE CULTURE IS RECOMMENDEDIF THERE IS STRONG SUPPORT FOR A URINARY TRACT INFECTIONCLINICALLY. UA RBC (test code=RBCU) 0-3 per HPF 0-5 UA EPITHELIAL CELLS (test code=EPIU) Moderate (5-10/hpf) per HPF Few UA BACTERIA (test code=BACU) FEW per HPF NONE Urine Source? Clean CatchURINALYSIS [id number] 02:16:00* Test Item Value Reference Range Comments UA COLOR (test code=COLU) YELLOW YELLOW UA APPEARANCE (test code=APPU) CLEAR CLEAR UA GLUCOSE DIPSTICK (test code=DGLUU) NEGATIVE mg/dL NEGATIVE UA BILIRUBIN DIPSTICK (test code=BILU) NEGATIVE NEGATIVE UA KETONE DIPSTICK (test code=KETU) TRACE mg/dL NEGATIVE UA SPECIFIC GRAVITY (test code=SGU) >=1.030 1.001-1.035 UA BLOOD DIPSTICK (test code=ALCIRA) TRACE NEGATIVE UA PH DIPSTICK (test code=MIKE) 5.5 5.0-8.0 UA PROTEIN DIPSTICK (test code=PROU) NEGATIVE mg/dL Neg-15 UA UROBILINIOGEN DIPSTICK (test code=URO) 0.2 mg/dL 0.0-0.2 UA NITRITE DIPSTICK (test code=MARZENA) NEGATIVE NEGATIVE UA LEUKOCYTE ESTERASE W REFLEX (test code=LEUUR) NEGATIVE NEGATIVE UA WBC (test code=WBCU) per HPF 0-5 Urine Source? Clean CatchCBC W/O [id number] 02:10:00* Test Item Value Reference Range Comments WHITE BLOOD CELL (test code=WBC) 9.2 K/mm3 4.5-12.5 RED BLOOD CELL (test code=RBC) 4.38 mill/mm3 3.7-5.2 HEMOGLOBIN (test code=HGB) 14.1 gram/dL 11.5-15.5 HEMATOCRIT (test code=HCT) 43.0 % 36.0-46.0 MEAN CELL VOLUME (test code=MCV) 98.2 fL 80-98 MEAN CELL HGB (test code=MCH) 32.2 picogram 27.0-33.0 MEAN CELL HGB CONCETRATION (test code=MCHC) 32.8 gram/dL 33.0-36.0 RED CELL DISTRIBUTION WIDTH (test code=RDW) 13.0 % 11.6-16.2 PLATELET COUNT (test code=PLT) 219 K/mm3 150-450 MEAN PLATELET VOLUME (test code=MPV) 10.3 fL 6.7-11.0 CBC W/AUTO [id number] 09:00:00* Test Item Value Reference Range Comments WHITE BLOOD CELL (test code=WBC) 6.05 x10 3/uL 4.5-11.0 RED BLOOD CELL (test code=RBC) 4.08 x10 6/uL 3.54-5.02 HEMOGLOBIN (test code=HGB) 13.2 g/dL 11.0-15.0 HEMATOCRIT (test code=HCT) 40.6 % 33.0-45.0 MEAN CELL VOLUME (test code=MCV) 99.5 fL 81.0-99.0 MEAN CELL HGB (test code=MCH) 32.4 pg 27.0-33.0 MEAN CELL HGB CONCETRATION (test code=MCHC) 32.5 g/dL 33.0-37.0 RED CELL DISTRIBUTION WIDTH CV (test code=RDW) 13.0 % 11.5-14.5 RED CELL DISTRIBUTION WIDTH SD (test code=RDW-SD) 47.8 fL 37.0-54.0 PLATELET COUNT (test code=PLT) 208 x10 3/uL 150-400 MEAN PLATELET VOLUME (test code=MPV) 10.7 fL 7.0-9.0 NEUTROPHIL % (test code=NT%) 45.9 % 56.0-77.0 IMMATURE GRANULOCYTE % (test code=IG%) 0.2 % 0.0-2.0 LYMPHOCYTE % (test code=LY%) 41.0 % 14.0-32.0 MONOCYTE % (test code=MO%) 8.8 % 4.8-9.0 EOSINOPHIL % (test code=EO%) 3.3 % 0.3-3.7 BASOPHIL % (test code=BA%) 0.8 % 0.0-2.0 NUCLEATED RBC % (test code=NRBC%) 0.0 % 0-0 NEUTROPHIL # (test code=NT#) 2.78 x10 3/uL 2.0-7.6 IMMATURE GRANULOCYTE # (test code=IG#) 0.01 x10 3/uL 0.00-0.03 LYMPHOCYTE # (test code=LY#) 2.48 x10 3/uL 1.0-3.8 MONOCYTE # (test code=MO#) 0.53 x10 3/uL 0.1-0.8 EOSINOPHIL # (test code=EO#) 0.20 x10 3/uL 0.0-0.2 BASOPHIL # (test code=BA#) 0.05 x10 3/uL 0.0-0.2 NUCLEATED RBC # (test code=NRBC#) 0.00 x10 3/uL 0.0-0.1 MANUAL DIFF REQUIRED (test code=MDIFF) NO BASIC METABOLIC [id number] 07:46:00* Test Item Value Reference Range Comments SODIUM (test code=NA) 142 mEq/L 134-147 POTASSIUM (test code=K) 4.3 mEq/L 3.4-5.0 CHLORIDE (test code=CL) 109 mEq/L 100-108 CARBON DIOXIDE (test code=CO2) 29 mEq/L 21-33 ANION GAP (test code=GAP) 8 0-20 GLUCOSE (test code=GLU) 80 mg/dL 70-110 BLOOD UREA NITROGEN (test code=BUN) 14 mg/dL 7-18 GLOMERULAR FILTRATION RATE (test code=GFR) 75.9 90-95 Units of measure=ml/min/1.73 m2 CREATININE (test code=CREAT) 0.8 mg/dL 0.6-1.3 CALCIUM (test code=CA) 8.9 mg/dL 8.0-10.5 URINALYSIS [id number] 17:05:00* Test Item Value Reference Range Comments UA COLOR (test code=COLU) STRAW YEL/STRAW UA APPEARANCE (test code=APPU) CLEAR CLEAR UA GLUCOSE DIPSTICK (test code=DGLUU) NEGATIVE NEGATIVE UA BILIRUBIN DIPSTICK (test code=BILU) NEGATIVE NEGATIVE UA KETONE DIPSTICK (test code=KETU) TRACE NEGATIVE UA SPECIFIC GRAVITY (test code=SGU) > 1.060 1.005-1.030 UA BLOOD DIPSTICK (test code=ALCIRA) NEGATIVE NEGATIVE UA PH DIPSTICK (test code=MIKE) 5.0 5.0-7.0 UA PROTEIN DIPSTICK (test code=PROU) NEGATIVE NEGATIVE UA UROBILINIOGEN DIPSTICK (test code=URO) 0.2 mg/dL 0.2-1.0 UA NITRITE DIPSTICK (test code=MARZENA) NEGATIVE NEGATIVE UA LEUKOCYTE ESTERASE DIPSTICK (test code=LEUU) NEGATIVE NEGATIVE UA WBC (test code=WBCU) 0-3 WBC/HPF 0-3 UA RBC (test code=RBCU) 0-3 RBC/HPF 0-3 UA BACTERIA (test code=BACU) TRACE /HPF NONE SEEN UA SQUAMOUS CELLS (test code=SQU) 6-10 /HPF NONE SEEN UA MUCUS (test code=MUCU) 1+ /LPF NONE SEEN - CT ABD PELVIS [id number] 16:09:00 Name: TISHERROL [facility] : 1965 Age/S: 52 / F [address] [place] [address] Unit #: [id number] Loc: [place] [address] Phys: Wing Ames Q DO Acct: [id number] Dis Date: Status: REG ER PHONE #: [phone] Exam Date: 03/07/2018 1548 FAX #: [phone] Reason: abd pain EXAMS: CPT CODE: [id number] CT ABD PELVIS W/CONT 94528 EXAM: CT ABDOMEN/PELVIS WITH CONTRAST HISTORY: 52-year-old female with abdominal pain TECHNIQUE: Helical imaging was performed diaphragm through the symphysis with multiplanar reformations obtained. IV CONTRAST: 100cc Isovue 300 GI CONTRAST: None DOSE: CT imaging performed at this location utilizes radiation dose optimization technique which includes one or more of the followin) Automated exposure control; 2) Adjustment of the mA and/or kV according to patient's size; 3) Use of iterative reconstruction techniques DLP (mGy-cm): 619.26 COMPARISON: CT abdomen/pelvis 02/14/2018 FINDINGS: LOWER CHEST: The visualized lung bases are clear. Normal size of the heart is noted. SOLID ORGANS: No focal hepatic lesion or intrahepatic biliary ductal dilatation is seen. Prior cholecystectomy. The spleen, pancreas, and adrenal glands are normal in appearance. Both kidneys demonstrate normal corticomedullary phase of enhancement. No renal/ureteral calculus, hydro nephrosis, mass, or cyst is apparent. BOWEL: The small bowel and c olon are normal in caliber without wall thickening. A normal appendix is i dentified. PERITONEUM: No free intraperitoneal fluid or air. No v entral wall defects. RETROPERITONEUM: Normal caliber of the abdominal aorta is noted. No lymphadenopathy is seen. PELVIS : The visualized urinary bladder wall is normal thickness. Organs of repro duction are unremarkable. MUSCULOSKELETAL: No acute osseous abnorm ality is seen. No destructive lytic or blastic osseous lesion is noted. D egenerative changes at L5-S1. PAGE 1 Si gned Report (CONTINUED) Name: VIK WINSTONINE [facility] : 1965 Age/S: 52 / F [address] Unit #: [id number] Loc: [place] [address] Phys: Wing Ames DO Acct: [id number] Dis Date: Status: REG ER PHONE #: [phone] Exam Date: 03/07/2018 1548 FAX #: [phone] Reason: abd pain EXAMS: CPT CODE: [id number] CT ABD PELVIS W/CONT 37412 <Continued> IMPRESSION: 1. No acute abnormality identified in the abdomen or pelvis. SL: [id number] at 1609 Reported and signed by: Garry Escalante M.D. CC: Wing Ames DO Technologist:RT Eliud(R) CTDI: DLP: Trnscb Date/Time: 03/07/2018 (8789) [email or web address] Orig Print D/T: S: 03/07/2018 (0648) CTDI: DLP: PAGE 2 Signed Report - XR CHEST 1 [id number] 15:40:00 FAX: Wing Ames DO [place]: St: REG Name: ERROL MARTINEZ [facility] : [birth year] Age/S: 52/F [address] [place] [address] Blvd Unit #: [id number] Loc: [place] [address] Phys: Wing Ames DO Acct: [id number] Dis Date: Status: REG ER PHONE #: [phone] Exam Date: 03/07/2018 1535 FAX #: [phone] Reason: abd pain EXAMS: CPT CODE: [id number] XR CHEST 1 V 65250 EXAM: CHEST SINGLE VIEW HISTORY: 52-year-old female with abdominal pain COMPARISON: Chest radiograph 02/13/2018. FINDINGS: The lungs are clear. The cardio mediastinal silhouette is normal for projection. Aortic calcification not ed. No acute osseous abnormality. IMPRESSION: 1. No acute cardiopulmonary abnormality. SL: [id number] at 1540 Reported and signed by: Garry Escalante M.D. CC: Wing Ames DO Priscila hnologist: RT Marty Rawls) Trnscrd Date/T claudia/By: 03/07/2018 (3220) : By: [email or web address] Orig Print D/T: S: 9 (2834) PAGE 1 Signed Report COMPREHENSIVE METABOLIC [id number] 15:35:00* Test Item Value Reference Range Comments SODIUM (test code=NA) 140 mEq/L 134-147 POTASSIUM (test code=K) 4.3 mEq/L 3.4-5.0 CHLORIDE (test code=CL) 108 mEq/L 100-108 CARBON DIOXIDE (test code=CO2) 26 mEq/L 21-33 ANION GAP (test code=GAP) 10 0-20 GLUCOSE (test code=GLU) 80 mg/dL 70-110 BLOOD UREA NITROGEN (test code=BUN) 14 mg/dL 7-18 GLOMERULAR FILTRATION RATE (test code=GFR) 88.6 90-95 Units of measure=ml/min/1.73 m2 CREATININE (test code=CREAT) 0.7 mg/dL 0.6-1.3 TOTAL PROTEIN (test code=PROT) 8.1 g/dL 6.4-8.2 ALBUMIN (test code=ALB) 4.10 g/dL 3.4-5.0 CALCIUM (test code=CA) 9.5 mg/dL 8.0-10.5 BILIRUBIN TOTAL (test code=BILT) 0.40 mg/dL 0.0-1.0 SGOT/AST (test code=AST) 25 IUnit/L 15-37 SGPT/ALT (test code=ALT) 31 IUnit/L 15-65 ALKALINE PHOSPHATASE TOTAL (test code=ALKP) 86 IUnit/L 20-125 [id number] 15:35:00* Test Item Value Reference Range Comments LIPASE (test code=LIP) 281 IUnit/L 73-393 COMPREHENSIVE METABOLIC [id number] 15:33:00* Test Item Value Reference Range Comments SODIUM (test code=NA) 140 mEq/L 134-147 POTASSIUM (test code=K) 4.3 mEq/L 3.4-5.0 CHLORIDE (test code=CL) 108 mEq/L 100-108 CARBON DIOXIDE (test code=CO2) 26 mEq/L 21-33 ANION GAP (test code=GAP) 10 0-20 GLUCOSE (test code=GLU) 80 mg/dL 70-110 BLOOD UREA NITROGEN (test code=BUN) 14 mg/dL 7-18 GLOMERULAR FILTRATION RATE (test code=GFR) 88.6 90-95 Units of measure=ml/min/1.73 m2 CREATININE (test code=CREAT) 0.7 mg/dL 0.6-1.3 TOTAL PROTEIN (test code=PROT) g/dL 6.4-8.2 ALBUMIN (test code=ALB) 4.10 g/dL 3.4-5.0 CALCIUM (test code=CA) 9.5 mg/dL 8.0-10.5 BILIRUBIN TOTAL (test code=BILT) mg/dL 0.0-1.0 SGOT/AST (test code=AST) 25 IUnit/L 15-37 SGPT/ALT (test code=ALT) 31 IUnit/L 15-65 ALKALINE PHOSPHATASE TOTAL (test code=ALKP) IUnit/L 20-125 [id number] 15:33:00* Test Item Value Reference Range Comments LIPASE (test code=LIP) 281 IUnit/L 73-393 CBC W/AUTO [id number] 15:14:00* Test Item Value Reference Range Comments WHITE BLOOD CELL (test code=WBC) 7.60 x10 3/uL 4.5-11.0 RED BLOOD CELL (test code=RBC) 4.70 x10 6/uL 3.54-5.02 HEMOGLOBIN (test code=HGB) 15.4 g/dL 11.0-15.0 HEMATOCRIT (test code=HCT) 44.9 % 33.0-45.0 MEAN CELL VOLUME (test code=MCV) 95.5 fL 81.0-99.0 MEAN CELL HGB (test code=MCH) 32.8 pg 27.0-33.0 MEAN CELL HGB CONCETRATION (test code=MCHC) 34.3 g/dL 33.0-37.0 RED CELL DISTRIBUTION WIDTH CV (test code=RDW) 12.8 % 11.5-14.5 RED CELL DISTRIBUTION WIDTH SD (test code=RDW-SD) 45.2 fL 37.0-54.0 PLATELET COUNT (test code=PLT) 267 x10 3/uL 150-400 MEAN PLATELET VOLUME (test code=MPV) 10.2 fL 7.0-9.0 NEUTROPHIL % (test code=NT%) 63.7 % 56.0-77.0 IMMATURE GRANULOCYTE % (test code=IG%) 0.4 % 0.0-2.0 LYMPHOCYTE % (test code=LY%) 26.6 % 14.0-32.0 MONOCYTE % (test code=MO%) 6.8 % 4.8-9.0 EOSINOPHIL % (test code=EO%) 1.8 % 0.3-3.7 BASOPHIL % (test code=BA%) 0.7 % 0.0-2.0 NUCLEATED RBC % (test code=NRBC%) 0.0 % 0-0 NEUTROPHIL # (test code=NT#) 4.84 x10 3/uL 2.0-7.6 IMMATURE GRANULOCYTE # (test code=IG#) 0.03 x10 3/uL 0.00-0.03 LYMPHOCYTE # (test code=LY#) 2.02 x10 3/uL 1.0-3.8 MONOCYTE # (test code=MO#) 0.52 x10 3/uL 0.1-0.8 EOSINOPHIL # (test code=EO#) 0.14 x10 3/uL 0.0-0.2 BASOPHIL # (test code=BA#) 0.05 x10 3/uL 0.0-0.2 NUCLEATED RBC # (test code=NRBC#) 0.00 x10 3/uL 0.0-0.1 MANUAL DIFF REQUIRED (test code=MDIFF) NO
--- OUTSIDE RECORDS SUMMARY | 2018-03-12 21:25 | XMS REPORT | Continuity of Care Document ---
Author Author [facility] Interface Address Unknown Phone Unavailable Problems Problem Status Onset Date Classification Date Reported Comments Source Bronchitis Active Diagnosis 04/15/2016.0.1.659365.4.391.11.17755 Exposure to lead Active Diagnosis 04/15/2016.0.1.916389.4.391 Bipolar affective disorder, remission status unspecified Active Problem 04/15/2016.0.1.906964.4.391. Medications Medication Details Route Status Patient Instructions Ordering Provider Order Date Source Symbicort 2 puffs Inhalation Active 80-4.5 MCG/ACT Inhalation Twice a day Nilson 04/12/2016.840.1.102375.4.391 Medrol (Jeffrey) as directed Orally Active 4 MG Orally as directed Nilson 04/12/2016.840.1.062841.4.391.11.35447 Levaquin 1 tablet Orally Active 500 MG Orally Once a day Nilson 04/12/2016.840.1.899051.4.391. Zoloft 1 tablet Orally Active 100 MG Orally Once a day Nilson 03.31.830.1.713106.4.391.11 HydrOXYzine HCl 1 tablet Orally Active 25 MG Orally three times a day (tid) Nilson 03.31.830.1.856374.4.391.11 Geodon 1 capsule Orally Active 40 MG Orally once a day Nilson 03.31.830.1.876632.4.391 Allergies, Adverse Reactions, Alerts Substance Category Reaction Severity Reaction type Status Date Reported Comments Source Keflex Adverse Reaction rash Adverse Reaction Active 04/12/2016.16840.1.471646.4.3911162170 Immunizations Immunization Date Given Site Status Last Updated Comments Source Results Order Name Results Value Reference Range Date Interpretation Comments Source Vital Signs Vital Sign Value Date Comments Source Weight 180.0 04/12/2016 [id number] Height 65.9 04/12/2016 [id number] Temperature Oral (F) 97.9 F 04/12/2016 [id number] Heart Rate 73 04/12/2016 [id number] Diastolic (mm Hg) 45 04/12/2016 [id number] Systolic (mm Hg) 97 04/12/2016 [id number] Encounters Location Location Details Encounter Type Encounter Number Reason For Visit Attending Provider ADM Date DC Date Status Source [facility] Unknown [id number] 04/12/2016 04/12/2016 [id number] Procedures Procedure Code Date Perfomer Comments Source
--- OUTSIDE RECORDS SUMMARY | 2018-03-12 21:25 | XMS REPORT ---
Author Author Jesse Devine Organization [employer] Address Unknown Phone Unavailable Care Team Providers Care Desk Representative Name Role Phone Jesse Devine CP Unavailable Allergies, Adverse Reactions, Alerts Substance Reaction Event Type Keflex rash Drug Allergy Encounters Encounter Location Date Unknown [facility] Apr 12, 2016 Problems Problem Type Condition ICD-9 Code Onset Dates Condition Status Assessment Bronchitis J40 Active Assessment Exposure to lead Z77.011 Active Problem Bipolar affective disorder, remission status unspecified F31.9 Active Medications Medication Code System Code Instructions Start Date End Date Status Dosage Symbicort MEDISPAN [address]-29 80-4.5 MCG/ACT Inhalation Twice a day Apr 12, 2016 May 10, 2016 [facility] [address]-07 100 MG Orally Once a day Active 1 tablet Medrol (Jeffrey) Unknown 0 4 MG Orally as directed Apr 12, 2016 April 19, 2016 Active as directed Levaquin MEDISPAN [address]-62 500 MG Orally Once a day Apr 12, 2016 April 22, 2016 Active 1 tablet HydrOXYzine HCl MEDISPAN [address]-64 25 MG Orally three times a day (tid) Active 1 tablet Geodon MEDISPAN [address]-13 40 MG Orally once a day Active 1 capsule Social History Social History Element Qualifiers Date Reported Do you take Aspirin, or a blood thinner . No I do not take aspirin / or a blood thinner Apr 12, 2016 Tobacco Use: . Are you a: current smoker, How many years have you smoked? 20, Pack Years 200 Apr 12, 2016 Use of recreational / street drugs? . Answer: No Apr 12, 2016 Marital Status: . Single Apr 12, 2016 Caffeine intake? . Status: Yes, What type: Coffee, Soft Drinks, Chocolate Apr 12, 2016 Do you exercise? . Answer: Yes, Type: walking Apr 12, 2016 Do you drink alcohol? . Status: No Apr 12, 2016 Travel outside [place]: . no Apr 12, 2016 Occupation: . RETIRED CPA, DISABILITY Apr 12, 2016 Vital Signs Date/Time: Apr 12, 2016 Weight 180.0 lbs Height 65.9 in Temperature 97.9 F Cardiac Monitoring Heart Rate 73 /min Blood Pressure Diastolic 45 mm Hg Blood Pressure Systolic 97 mm Hg Summary Purpose [employer] Submission
--- OUTSIDE RECORDS SUMMARY | 2018-03-12 21:25 | XMS REPORT | Clinical Summary ---
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 Active clonazePAM (KLONOPIN) 0.5 Take 0.5 mg 0 MG tablet by mouth nightly. Active lactulose (CHRONULAC) 20 Take 30 mLs 200 mL 0 10/16/ gram/30 mL solution (20 g total) 3 by mouth 3 (three) times daily. Active ketorolac (TORADOL) 10 mg Take 10 mg by 0 tablet mouth every 6 (six) hours as needed. Active sertraline (ZOLOFT) 100 Take 75 mg by 0 MG tablet mouth daily. Active LORazepam (ATIVAN) 0.5 MG Take 0.5 mg 0 tablet by mouth every 6 (six) hours as needed for Anxiety. Active Problems Not on file Social History Date Tobacco Use Types Packs/Day Years Used Current Every Day Smoker Tobacco Cessation: Ready to Quit: Yes Comments: uses electronic cigarette x 2 weeks Alcohol Use Drinks/Week oz/Week Comments No Sex Assigned at Date Recorded Not on file Industry Job Start Date Occupation Not on file Not on file Not on file Travel End Travel History Travel Start No recent travel history available. Last Filed Vital Signs Not on file Plan of Treatment Not on file Results Not on fileafter 03/11/2017
[2018-03-12] MEDS ORDERED: ONDANSETRON HCL INJ 2MG/ML 2ML 2 MG/ML VIAL IV ONE (21:40)
[2018-03-12] MEDS ORDERED: SODIUM CHLORIDE 0.9% 1000ML 1,000 ML IV ONE (21:45)
[2018-03-12 22:24] LABS: BASOPHILS # (AUTO) 0.1 (0.0-0.1); BASOPHILS % 0.9 % (0.0-1.0); EOSINOPHILS # (AUTO) 0.3 (0.0-0.4); HEMATOCRIT 44.9 % (34.2-44.1); HEMOGLOBIN 15.1 g/dL (12.0-16.0); LYMPHOCYTES # (AUTO) 2.8 (1.0-3.2); LYMPHOCYTES % 36.8 % (18.0-39.1); MEAN CORPUSCULAR HEMOGLOBIN 32.8 pg (28-32); MEAN CORPUSCULAR HGB CONC 33.6 g/dL (31-35); MEAN CORPUSCULAR VOLUME 97.6 fL (81-99); MONOCYTES # (AUTO) 0.6 (0.2-0.8); MONOCYTES % 7.9 % (4.4-11.3); NEUTROPHILS # (AUTO) 3.9 (2.1-6.9); NEUTROPHILS % 50.3 % (38.7-80.0); PLATELET COUNT 209 x10e3/uL (140-360); RED CELL DISTRIBUTION WIDTH 12.9 % (11.7-14.4)
[2018-03-12] MEDS ORDERED: DIATRIZOATE MEGL/DIATRIZOA SOD 30 ML BTL PO ONE (22:35)
[2018-03-12 22:36] LABS: BILIRUBIN,URINE NEGATIVE (NEGATIVE); CLARITY,URINE HAZY (CLEAR); COLOR,URINE YELLOW (YELLOW); KETONES,URINE TRACE (NEGATIVE); LEUKOCYTE ESTERASE ,URINE NEGATIVE (NEGATIVE); NITRITE,URINE NEGATIVE (NEGATIVE); PROTEIN,URINE DIPSTICK NEGATIVE (NEGATIVE); URINE UROBILINOGEN 0.2 mg/dL (0.2 - 1)
[2018-03-12 22:39] LABS: ALANINE AMINOTRANSFERASE 23 IU/L (0-55); ALBUMIN 4.2 g/dL (3.5-5.0); ALBUMIN/GLOBULIN RATIO 1.3 (0.8-2.0); ALKALINE PHOSPHATASE 67 IU/L (40-150); AMYLASE 107 U/L (25-125); ANION GAP 17.2 mmol/L (8-16); BLOOD UREA NITROGEN 6 mg/dL (7-26); BUN/CREATININE RATIO 7 (6-25); CALCIUM 9.6 mg/dL (8.4-10.2); CARBON DIOXIDE 25 mmol/L (22-29); CHLORIDE 105 mmol/L (98-107); CREATININE, SERUM 0.88 mg/dL (0.57-1.11); EST GLOMERULAR FILTRATION RATE > 60 ML/MIN (60-); GLUCOSE 101 mg/dL (74-118); LIPASE 41 U/L (8-78); POTASSIUM 4.2 mmol/L (3.5-5.1); SODIUM 143 mmol/L (136-145)
[2018-03-12 22:56] LABS: AMORPHOUS SEDIMENT,URINE FEW (FEW); BACTERIA,URINE MODERATE /HPF; CALCIUM OXALATE CRYSTALS,UR RARE (FEW); EPITHELIAL CELLS,URINE MANY /LPF; RBC,URINE 0-5 /HPF (0-5)
[2018-03-12] MEDS ORDERED: KETOROLAC TROMETHAMINE 30 MG/ML VIAL IV STA (22:56)
[2018-03-12] MEDS ORDERED: IOPAMIDOL 370 MG/ML 200 ML INFUS..BTL INJ ONE (23:30)
[2018-03-12] MEDS ORDERED: SODIUM CHLORIDE 0.9% 50ML 50 ML ONE (23:30)
--- NOTE | 2018-03-13 00:40 | NUR ---
PATIENT STATES THAT HER PAIN IS NOT RELIEVED, SINCE HAVING PATIENT IN ROOM HER BP WAS 99/57 DURING THE BEGINNING, ONCE PHYSICKASHIF CAME AND SPOKE TO PATIENT REGARDING LOW BLOOD PRESSURE AND NOT BEING ABLE TO ADMINSTER MORE PAIN MEDICATION PATIENT IMMEDIATELY REQUESTED TO HAVE HER BP CUFF CHANGED TO THE OTHER ARM. 15 MINUTES LATER PATIENT BLOOD PRESSURE WENT UP 173/145, NO SIGNS OF MALIGNANT HYPERTENSION, NO SIGNS OF STROKE, VISION ACCURATE, PATIENT STATED, " I CAN HAVE PAIN MEDICINE NOW", I RECHECKED HER BLOOD PRESSURE IMMEDIATELY AND TOLD HER TO RELAX HER ARM AND STAY STILL, THE BLOOD PRESSURE WAS 112/61, MD CAME TO ROOM AND SPOKE TO PATIENT, TORADOL 30MG IV WAS GIVEN HOWEVER PATIENT STATES IT WAS NOT EFFECTIVE TO CONTROL PAIN MEDICINE. PATIENT REQUESTED REMOTE CONTROL FOR THE TELEVISON MULTIPLE TIMES. AWAITING CURRENTLY FOR CT SCAN RESULTS
--- NOTE | 2018-03-13 00:49 | Diagnostic Imaging Report ---
EXAM: CT ABDOMEN/PELVIS W DATE: 03/12/2018 9:40 PM INDICATION: Abdominal pain, diverticulitis COMPARISON: None TECHNIQUE: The abdomen and pelvis were scanned using a multidetector helical scanner. Coronal and sagittal reformations were obtained. CT low dose techniques were utilized, as applicable. IV Contrast: 100 ml Isovue 300/370 FINDINGS: LOWER THORAX: No consolidations LIVER/BILIARY: No masses. No ductal dilatation. GALLBLADDER: Unremarkable SPLEEN: Unremarkable PANCREAS: Unremarkable ADRENALS: No nodules KIDNEYS: No suspicious renal masses. No hydronephrosis. GI TRACT: The stomach is moderately distended with ingested material/contrast. No evidence of bowel obstruction or appendicitis. Scattered diverticula. VESSELS: Unremarkable PERITONEUM/RETROPERITONEUM: No free air or fluid LYMPH NODES: No lymphadenopathy REPRODUCTIVE ORGANS/BLADDER: Unremarkable SOFT TISSUES: Unremarkable BONES: Degenerative changes, with primarily at L5-S1 IMPRESSION: No acute abnormality. Signed by: Dr Emma Plasencia MD on 03/13/2018 12:46 AM
[2018-03-13 01:03] VITALS: BP 112/61
== END 2018-03-13 01:19 | disposition home or self-care (01) ==
LOC: ER 21:21
DX: R10.31 Right lower quadrant pain (principal); R10.32 Left lower quadrant pain; R11.2 Nausea with vomiting, unspecified; R19.7 Diarrhea, unspecified; N30.90 Cystitis, unspecified without hematuria; F31.9 Bipolar disorder, unspecified
CPT/HCPCS: 36415; 74177; 80053; 81001; 82150; 83690; 85025; 99283; J1885; J2405; J7030; Q9967